=== PATIENT | male | born 1995 | race Caucasian/White ===

== ENCOUNTER → 2018-02-06 14:04 | Outpatient (CLI) | payer OTHER, SELFPAY | PROVIDERS: Family Provider Family Medicine; PCP Family Medicine; Visit Provider Family Medicine | DX: R30.0 Dysuria (principal) | CPT/HCPCS: 87086 ==

== ENCOUNTER 2020-04-21 11:24 | Day surgery (SDC) | payer OTHER, SELFPAY ==
[2020-04-08 13:46] VITALS: BMI 23.6
--- NOTE | 2020-04-09 02:36 | HP_ITS ---
Intake Vital Signs 04/08/20 Height 5 ft 8 in 04/08/20 Weight: 155 lb 3 oz 04/08/20 BMI 23.6 04/08/20 BP 119/68 04/08/20 Blood Pressure Location Rt brachial 04/08/20 Position Sitting 04/08/20 Respiration 16 04/08/20 Pulse 67 04/08/20 Pulse Oximetry (%) 97 Intake Visit Reasons: Hemorrhoid Chief Complaint: painful hemorrhoid Saxophone Player Required: No Is patient in pain?: Yes (rectum) Pain scale (1-10): 4 Allergies ondansetron [From Zofran] Adverse Reaction (Mild, Verified 04/08/20 13:47) lightheaded, nausea Medications escitalopram oxalate 10 mg tablet ea PO 04/08/20 [History Confirmed 04/08/20] PFS Medical History (Updated 04/08/20 @ 13:44 by Gisela Fry) Anxiety (Acute) GERD (gastroesophageal reflux disease) (Acute) Hemorrhoid (Acute) Surgical History (Updated 04/08/20 @ 13:44 by Gisela Fry) History of arthroscopic knee surgery (Acute) History of colonoscopy (Acute) Family History (Updated 04/08/20 @ 13:45 by Gisela Fry) Mother Hypertension Grandfather Heart disease Hypertension Melanoma Social History (Updated 04/09/20 @ 14:[address] Patrick Ngo MD) Smoking Status: Never smoker HPI HPI HPI: MIRANDA KEARNS, is a 25 M who presents to the office today for HPI HPI Surgical H&P: Yes HPI: MIRANDA KEARNS, is a 25 M who presents to the office today for Rectal pain. Patient notes that he has been having rectal pain more on his right side for the past 6 months. He reports that he does have some pain with defecation. He is not having any fevers or chills. He has not noticed any pus or purulence. He has not had any blood in his stool. ROS General General: No weight change, appetite, fatigue, colon cancer, breast cancer or weakness HEENT HEENT: No difficulty swallowing, eye injury, eye surgery, swollen glands or hoarseness Endo Endocrine: No thyroid disease, diabetes mellitus, thyroid cancer, Hair loss, heat intolerance or cold intolerance Musc Musculoskeletal: No back problems, arthritis, rheumatoid arthritis, gout or joint pain Cardio Cardiovascular: No murmur, pacemaker, heart disease, atrial fibrillation, high blood pressure, heart attack, heart stent, palpitations, shortness of breat with exertion or chest pain Psych Psychiatric: Yes anxiety; no depression or hearing voices Resp Respiratory: No shortness of breath, No sleep apnea, No cough, No COPD, No asthma, No emphysema, No wheezing Gastro Gastrointestinal: No abdominal pain, No nausea or vomiting, No diarrhea, No constipation, No blood in stool, Yes acid reflux, Yes hemorrhoids, No ulcers, No gallbladder problem, No black,tarry stools Ganesh Hematologic: No blood thinners, No blood disorders, No bleeding, No anemia, No blood clots Neuro Neurologic: No weakness Exam Const General: cooperative Orientation: alert, oriented x3 Resp Effort & Inspection: normal respiratory effort Auscultation: clear to auscultation bilaterally Cardio Rate: regular rate Rhythm: regular rhythm Heart Sounds: no murmurs GI Inspection: non-distended Palpation: soft, nontender Rectal Exam: visual inspection normal, normal sphincter tone, tenderness Assessment & Plan Problems 1. Rectal pain K62.89 Plan The patient is having pain in the rectal area especially on the right side. Patient reports he has pain with defecation but no blood in his stool or purulent material. On physical exam I do not note that there is any external hemorrhoid. On rectal exam he was very painful but there were no internal hemorrhoids noted either. I explained to the patient that he may have a fissure or fistula or possible hemorrhoid that is internal. I discussed exam under anesthesia with all the possible outcomes. I discussed performing an exam under anesthesia with possible hemorrhoidectomy if present. I also explained possible fistulotomy with seton suture placement or fissure excision. The patient understands and would like to proceed with exam under anesthesia. I discussed the risks of the procedure including not limited to bleeding, infection, urinary retention or fecal incontinence. We discussed the current risks associated with COVID-19. While it is understood that there is a community spread of COVID-19, the risk of flora COVID-19 while at [facility] ([facility]) is very low; however, the risk cannot be completely mitigated because of the community spread of the disease. We discussed in detail the risk of exposure to and/or potential harm posed by the COVID-19 virus with having a surgery/procedure at this time versus the risk of delaying the surgery/procedure. It is not possible to know either the risk of delaying the surgery or procedure or chance of getting an infection with perfect accuracy, but a joint decision was made to proceed at this time with the scheduled surgery/procedure as indicated on the consent form. Patient was notified that we will need to comply with any screening or testing [facility] wishes to perform or that surgery may be delayed for any positive results. Patrick Ngo MD Pager: [facility] [address] [place] [address], [address] [place] [address] Office: Coding Level of Care Code Off vis,new,level 3 Diagnoses Rectal pain K62.89 04/09/20 1436 <Electronically signed by Patrick vick MD> Date _ Patrick Ngo MD I have re-examined the patient. There are no clinical changes since date of exam.
[2020-04-21] VITALS (8 sets, daily range): BP systolic 111–127; BP diastolic 60–75; PULSE 75–104; RESP 14–16; TEMP 36.1–37.2; O2SAT 93–100; BMI 23.3
--- NOTE | 2020-04-21 | HEM_PTH ---
PATIENT: MIRANDA KEARNS LOC: [facility] [place] U#:[id number] AGE/SX: 25/M ROOM: RE04/21/[address]: Dr. Patrick Ngo MD : 1995 BED: DIS: 04/21/2020 SPEC #: [id number] RECD: 04/21/20 14:48 STATUS: WILLI REJaqueline #: [id number] SREE: 04/21/20 00:[address]: Patrick Ngo DEPT: SURGICAL PATHOLOGY RECD BY: Leonardo Okeefe ENTERED: 04/22/20 12:03 SP TYPE: HEMORRHOID OTHR DR: Dr. Cresencio Colbert MD Tissues: HEMORRHOIDS Procedures: Surgery Specimen Level III HEADER OPERATION: EUA, hemorrhoidectomy PRE-OP DIAGNOSIS: Hemorrhoid TISSUE SUBMITTED: Hemorrhoid right column MICROSCOPIC DIAGNOSIS Hemorrhoid right column: A piece of squamous mucosa with dilated and congested blood vessels, consistent with hemorrhoid. SJ:quentin 04/23/20 MICROSCOPIC DESCRIPTION Slides are reviewed. GROSS DESCRIPTION Received in fixative is one container labeled with the patient's name and designated hemorrhoid right column. The specimen consists of a piece of congested mucosal tissue measuring 1.5 x 0.7 x 0.7 cm. The specimen is bisected and submitted entirely in one cassette. / ZHENG:quentin 04/22/20 TC:5 CPT: 04985
[2020-04-21] MEDS: Lactated Ringers 1,000 ML 100 ML IV ×2 (12:01→15:20)
[2020-04-21] MEDS: Lubricating Jelly 60 GM Tube 30 GM TOPICAL (14:29)
[2020-04-21] MEDS: Dibucaine 30 GM Tube 1 APPLIC (14:35)
[2020-04-21] MEDS: Bupivacaine Mpf 0.5% 30 ML VIAL (14:35)
--- NOTE | 2020-04-21 15:11 | PCM.OPRPT ---
Problem List (1) Complex second degree hemorrhoid Status: Acute Report of Operation Date of Procedure: 04/21/20 Pre-Operative Diagnosis: Anal pain and hemorrhoids Post-Operative Diagnosis: Same Surgery/Procedure Performed:: Exam under anesthesia and hemorrhoidectomy Description of Surgical Findings:: Hemorrhoid of the right column Specimen's removed: Hemorrhoid Description of Procedure: The patient was brought back to the operating room and general anesthesia was induced. The patient was placed in a prone jackknife position. The buttocks were taped in an open position. The perineal area was prepped and draped in usual sterile fashion. A well lubricated finger was placed into the rectum and it was examined. The patient appeared to have an internal and external right hemorrhoid. There was no evidence of fistula or fissure. Retractor was placed into the anus. A chromic suture was used to suture the internal component of the hemorrhoid. Next using harmonic the hemorrhoid was removed. The suture was then used to reapproximate the mucosa. Next to the area was injected with local anesthetic. Dibucaine cream was then placed into the anal canal. Patient was then rolled and extubated and taken to PACU in stable condition. Patient tolerated the procedure well. - Admit VTE Documentation VTE Mechan Device Prophylaxis: SCD's
--- NOTE | 2020-04-21 15:18 | DCINST_ITS ---
Discharge Diet: No Restrictions Discharge Activity: Return to Normal Activity, May Not Drive - while you are taking narcotic pain medications. Do not drive, work with heavy equipment or sign legal documents for 24 hours after your surgery. Additional Activity Instructions:: Be aware that pain medications may cause nausea. You should typically eat light foods as you take your pain medications. Pain medications may also cause constipation, if you have difficulty with this please discuss with your doctor. Call your doctor if your incision/area has: Continuous Slow Oozing, Sudden Increased Bleeding, Increased Pain/ Swelling, Increased Redness, Foul Smelling Discharge, Swelling at the incision site Call your doctor if you observe: Fever of 101 or Higher Additional Dressing/Incision Instructions:: Place dibucaine ointment on the perianal area as needed. Sitz baths twice daily and after bowel movements. Allergies/Adverse Reactions: Allergies ondansetron [From Zofran] Adverse Reaction (Mild, Verified 04/21/20 11:44) lightheaded, nausea Medications to take at Discharge escitalopram oxalate 10 mg tablet 10 mg PO DAILY 04/08/20 Omeprazole [Prilosec] 20 mg PO DAILY PRN 04/14/20 Docusate Sodium [Colace] 100 mg PO BID #20 cap 04/21/20 Oxycodone HCl/Acetaminophen [Percocet 5-325 mg Tablet] 1 - 2 tab PO Q6H PRN 5 Days #50 tablet 04/21/20 The following prescriptions were given: Docusate Sodium [Colace] 100 mg PO BID #20 cap Transmission Status: Pending to [facility] Oxycodone HCl/Acetaminophen [Percocet 5-325 mg Tablet] 1 - 2 tab PO Q6H PRN 5 Days #50 tablet PRN Reason: Pain Score 4-10/10 Transmission Status: Sent to [facility] Primary Care Physician: Kade Colbert MD [Primary Care Provider] - Test Results: Test results from this visit will be discussed in further detail at your follow- up appointment, if applicable. Please Follow Up With: Patrick Ngo MD When: Please call to schedule 2 week follow up appointment. [phone]
== END 2020-04-21 17:17 | disposition home or self-care (01) ==
LOC: SDC 11:25 → AC 11:26
PROVIDERS: PCP Family Medicine; Referring Provider Surgery; Visit Provider Surgery
PROC: (CPT 46260; principal; 2020-04-21 12:45)
DX: K64.1 Second degree hemorrhoids (principal); F41.9 Anxiety disorder, unspecified; K21.9 Gastro-esophageal reflux disease without esophagitis; Z79.899 Other long term (current) drug therapy
CPT/HCPCS: 46260; 87635; 88304; G2023; J7120; U0003

== ENCOUNTER 2021-11-07 10:48 | Outpatient (CLI) | payer OTHER, SELFPAY | END 2021-11-07 23:59 | disposition home or self-care (01) | LOC: LABSPEC 11-08 10:53 | PROVIDERS: PCP Family Medicine; Referring Provider Family Medicine; Visit Provider Family Medicine | DX: U07.1 COVID-19 (principal) | CPT/HCPCS: 87635; U0003; U0005 ==

== ENCOUNTER → 2022-09-20 | Outpatient (CLI) | payer OTHER, SELFPAY ==
--- NOTE | 2022-09-20 15:25 | RAD_ITS ---
STUDY: X-RAY - PARANASAL SINUSES REASON FOR EXAM: Male, 27 years old. Allergies. TECHNIQUE: 4 view(s) of the paranasal sinuses were obtained. COMPARISON: None. FINDINGS: Normal visualized frontal, maxillary, ethmoidal and sphenoid sinuses. Normal visualized facial bones. The soft tissue structures are unremarkable. RAD/Sinuses min 3 Views IMPRESSION: Normal x-rays of the paranasal sinuses. Electronically Signed: Rene Laird, at 15:45 EST ,
== END | disposition home or self-care (01) ==
LOC: MTRAD 15:16
PROVIDERS: PCP Family Medicine; Visit Provider Family Medicine
DX: T78.40XA Allergy, unspecified, initial encounter (principal)
CPT/HCPCS: 70220

== ENCOUNTER → 2023-04-25 | Outpatient (CLI) | payer OTHER, SELFPAY ==
[2023-04-25 10:50] LABS: Vitamin B12 478 pg/mL (211-911); Vitamin D,25 Hydroxy 30.6 ng/mL
[2023-04-25 11:06] LABS: ALB/GLOB Ratio 1.1 RATIO (0.9-2.4); AST(SGOT) 23 U/L (15-37); Alanine Aminotransfer ALT/SGPT 60 U/L (16-61); Albumin, Serum 4.3 g/dL (3.2-5.0); Alkaline Phosphatase 46 U/L (45-117); Anion Gap 3 (5-15); BUN 14 mg/dL (7-18); BUN/Creat Ratio 16.5 RATIO (10-20); CRP < 2.90 mg/L (0.0-3.0); Calcium,Total 9.5 mg/dL (8.5-10.1); Chloride 106 mmol/L (98-107); Creatinine, Serum 0.85 mg/dL (0.70-1.30); EST Glomerular Filtration Rate 115 mL/min (>60); Est Glom Filt Rate - Afr Amer 139 mL/min (>60); Glucose 102 mg/dL (74-106); Iron 111 ug/dL (65-175); Potassium 3.8 mmol/L (3.5-5.1); Protein, Total 8.3 g/dL (6.4-8.2); Sodium Level 140 mmol/L (136-145); Thyroid Stim Hormone (TSH) 1.59 uIU/mL (0.358-3.74)
[2023-04-25 12:25] LABS: Absolute Lymphocyte Count 1.13 X10^3/uL (0.83-4.51); Basophil# 0.03 X10^3/uL; Basophil% 0.8 % (0-1); Eosinophil# 0.16 X10^3/uL; Eosinophils% 4.5 % (0-5); Hemoglobin 15.1 g/dL (13.0-16.5); Lymphocyte # 1.13 X10^3/ul (0.83-4.51); Lymphocyte % 31.7 % (19-41); Mean Corp Hgb Conc 35.1 g/dL (32-36); Mean Corpuscular Hgb 32.4 pg (27.0-32.0); Mean Corpuscular Volume 92.3 fL (80-94); Mean Platelet Vol. 9.8 fl (6.2-12.0); Monocyte% 8.4 % (0-10); NRBC Flagged by Analyzer 0 % (0-5); Neutrophil # 1.95 X10^3/uL (2.7-7.7); Neutrophil % 54.6 % (47-70); Platelet Count 189 K/mm3 (150-450); RBC Distribution Width CV 11.5 % (11.6-14.6); RBC Distribution Width SD 39.1 fl (35.1-43.9); Red Blood Count 4.66 M/mm3 (4.6-6.2); White Blood Count 3.6 K/mm3 (4.4-11.0)
[2023-04-25 12:34] LABS: Erythrocyte Sedimentation Rate < 1 mm/hr (0-20)
== END | disposition home or self-care (01) ==
PROVIDERS: PCP Family Medicine; Referring Provider Family Medicine; Visit Provider Family Medicine
DX: R53.83 Other fatigue (principal); R25.2 Cramp and spasm
CPT/HCPCS: 36415; 80053; 82306; 82533; 82607; 83540; 84403; 84443; 85025; 85652; 86140

== ENCOUNTER → 2023-07-18 | Outpatient (CLI) | payer BC, SELFPAY ==
--- NOTE | 2023-07-18 09:23 | US_ITS ---
STUDY: THYROID ULTRASOUND REASON FOR EXAM: Male, 28 years old. Palpable nodule TECHNIQUE: Ultrasound evaluation of the thyroid was performed with real-time and static jay-scale imaging. COMPARISON: None. FINDINGS: RIGHT LOBE: The right lobe of the thyroid gland measures 5.4 x 1.8 x 1.7 cm. There is a heterogeneous echotexture. There are no demonstrated solid, cystic or complex lesions. LEFT LOBE: The left lobe of the thyroid gland measures 5.9 x 2.6 x 2.4 cm. There is a heterogeneous echotexture. There is a solid heterogeneous partially calcified nodule measuring 2.7 x 2.5 x 2.2 cm in the central left lobe. This nodule is mixed cystic and solid, hypoechoic, [id number], is lobulated or irregular and contains no echogenic foci. TI-RADS points: 5. TI-RADS category: TR4. This nodule is moderately suspicious. Recommend FNA evaluation. ISTHMUS: The isthmus measures 0.4 cm. The regional lymph nodes are normal. US/Thyroid IMPRESSION: Enlarged heterogeneous thyroid gland with concerning nodule in the left thyroid lobe. Categorization and follow-up as described above. Electronically Signed: Enrique Miranda MD at 15:23 EDT ,
--- NOTE | 2023-07-18 09:30 | RAD_ITS ---
STUDY: X-RAY - ESOPHAGUS (BARIUM SWALLOW) WITH FLUOROSCOPY REASON FOR EXAM: Male, 28 years old. GASTRO ESOPHAGEAL REFLUX TECHNIQUE: 22 view(s) of the esophagus were obtained following swallowing of barium. FLUOROSCOPY TIME (if supplied): (32 seconds) minutes/seconds COMPARISON: None. FINDINGS: There is no demonstrated esophageal foreign body. There is no demonstrated stricture or mucosal abnormality. Normal gastroesophageal junction, without a demonstrated hiatal hernia. The patient ingested a 12 mm tablet of barium without any difficulty. Normal visualized aortic arch and descending thoracic aorta. Normal visualized pulmonary parenchyma. Normal visualized osseous structures of the thorax. RAD/Esophagus Dual Contrast IMPRESSION: Normal plain film x-ray examination (barium swallow) of the esophagus. Electronically Signed: Ryan Moulton MD at 12:59 EDT ,
== END | disposition home or self-care (01) ==
LOC: US 09:19
PROVIDERS: PCP Family Medicine; Referring Provider Family Medicine; Visit Provider Family Medicine
DX: E04.1 Nontoxic single thyroid nodule (principal)
CPT/HCPCS: 74221; 76536

== ENCOUNTER → 2023-08-09 | Outpatient (CLI) | payer BC, SELFPAY ==
--- NOTE | 2023-08-09 15:00 | FLU_PTH ---
PATIENT: MIRANDA KEARNS LOC: [facility] U#:[id number] AGE/SX: 28/M ROOM: RE08/09/[address]: Dr. Claixto Crump MD : 1995 BED: DIS: 08/09/2023 SPEC #: [id number] RECD: 08/09/23 15:59 STATUS: WILLI REQ #: [id number] SREE: 08/09/23 15:[address]: Calixto Crump DEPT: CYTOLOGY RECD BY: Felicity Alvarez ENTERED: 08/10/23 09:23 SP TYPE: Fluid OTHR DR: Dr. Cresencio Colbert MD Tissues: A - Thyroid gland, NOS B - Thyroid gland, NOS Procedures: Special Stain Group II Surgery Specimen Level IV Cytospin Fluid Cytology Other HEADER OPERATION: Fine needle aspiration left thyroid nodule PRE-OP DIAGNOSIS: Left thyroid nodule TISSUE SUBMITTED: A - Left thyroid nodule fluid, B - Left thyroid nodule x4 slides DIAGNOSIS CYTOLOGY A. Fine needle aspiration, left thyroid nodule (cytospin and cell block): Atypical follicular cells present, Scott Category III. See comment. B. Fine needle aspiration, left thyroid nodule (smears). Papillary thyroid carcinoma, Scott Category . See comment. AM:quentin 08/13/2023 COMMENT A & B. The Scott System for thyroid diagnostic categorization was used in the evaluation of this case. Adequate for evaluation. CYTOLOGY STUDY Slides are reviewed. CYTOLOGY GROSS A - Received is 30 ml of red cloudy fluid labeled with the patient's name and and designated per the requisition as left thyroid nodule. Submitted for cytology preparation including cell block. B - Received are four smears labeled with the patient's name and designated per the requisition as left thyroid nodule. Submitted for staining. / quentin 08/10/2023 TC:0 CPT: 91816 x2, 36696
== END | disposition home or self-care (01) ==
LOC: LABSPEC 16:04
PROVIDERS: PCP Family Medicine; Referring Provider Surgery; Visit Provider Surgery
DX: C73 Malignant neoplasm of thyroid gland (principal)
CPT/HCPCS: 88108; 88161; 88305; 88313

== ENCOUNTER → 2023-08-14 | Outpatient (CLI) | payer BC, SELFPAY ==
--- NOTE | 2023-08-14 18:24 | US_ITS ---
EXAM: Soft tissue neck ultrasound HISTORY: check lymph nodes/surrounding tissue of thyroid COMPARISON: None TECHNIQUE: Sonographic evaluation of both sides of the neck to evaluate for palpable lumps FINDINGS: Sonographic evaluation of the soft tissues of the anterior neck show multiple physiologic jugular chain lymph nodes. All measure well less than 1 cm in short axis dimension. No suspicious mass or adenopathy noted in the right side of the neck. There are multiple left-sided subcentimeter in short axis dimension physiologic lymph nodes lateral to the thyroid with the largest measuring 1.4 x 0.7 x 0.4 cm. US/Head/Neck Soft Tissue IMPRESSION: Physiologic lymph nodes in the left jugular chain. No suspicious bulky adenopathy or suspicious mass lesion. Electronically Signed: Enrique Miranda MD at 8:49 EST ,
== END | disposition home or self-care (01) ==
LOC: US 18:24
PROVIDERS: PCP Family Medicine; Visit Provider Surgery
DX: C73 Malignant neoplasm of thyroid gland (principal)
CPT/HCPCS: 76536

== ENCOUNTER 2023-09-13 06:06 | Day surgery (SDC) | payer BC, SELFPAY ==
[2023-09-13] VITALS (18 sets, daily range): BP systolic 97–121; BP diastolic 66–85; PULSE 70–111; RESP 14–18; TEMP 36.2–36.9; O2SAT 88–100; BMI 25.5
--- NOTE | 2023-09-13 | THYROID_PTH ---
PATIENT: MIRANDA KEARNS LOC: [facility] [place] U#:[id number] AGE/SX: 28/M ROOM: RE09/13/[address]: Dr. Calixto Crump MD : 1995 BED: DIS: 09/13/2023 SPEC #: [id number] RECD: 09/13/23 09:16 STATUS: WILLI PAUL #: [id number] SREE: 09/13/23 00:[address]: Calixto Crump DEPT: SURGICAL PATHOLOGY RECD BY: Sushila Rubalcava ENTERED: 09/13/23 10:00 SP TYPE: THYROID OTHR DR: Dr. Cresencio Colbert MD Tissues: A - Adipose tissue B - Thyroid gland, NOS Procedures: Frozen Section (charge) Surgery Specimen Level IV Surgery Specimen Level V HEADER OPERATION: Left thyroidectomy with isthmusectomy & IONM PRE-OP DIAGNOSIS: Thyroid nodule, thyroid papillary carcinoma TISSUE SUBMITTED: A - Rule out parathyroid tissue, frozen section, B- Left thyroid and isthmus, tag on left superior pole FROZEN SECTION DIAGNOSIS A. Rule out parathyroid tissue, biopsy: A piece of fibroadipose tissue. Not parathyroid, thyroid or lymph node tissue. :quentin 09/13/2023 MICROSCOPIC DIAGNOSIS A. Rule out parathyroid tissue, biopsy: A piece of fibroadipose tissue. No parathyroid, thyroid or lymph node tissue is noted. See comment. B. Left thyroid and isthmus, thyroidectomy and isthmusectomy: Papillary thyroid carcinoma. See cancer summary in the comment section. SJ:quentin 09/18/2023 COMMENT A. The entire specimen is exhausted during frozen section processing. B. THYROID CANCER SUMMARY Procedure: Left lobectomy and isthmusectomy (hemithyroidectomy) Tumor Focality: Unifocal Tumor Site: Left thyroid lobe Tumor size: 3.8 x 2.5 x 1.6 cm. Histologic Type: Papillary carcinoma, classic (usual, conventional) Margins: Margins uninvolved by invasive carcinoma. The tumor is <0.1 cm away from the closest anterior and posterior margin. Angioinvasion: Not identified Lymphatic Invasion: Not identified Perineural invasion: Not identified Extrathyroidal Extension: Not identified Regional Lymph Nodes: Number of lymph nodes Examined: 1 Number of Lymph nodes involved: 0 Distant metastasis: No applicable Ancillary Studies: Not performed Additional Pathologic Findings: None identified Clinical History: Please make reference to previous specimen ([id number]), fine needle aspiration, left thyroid nodule with diagnosis of papillary thyroid carcinoma. PATHOLOGIC STAGE: pT2 pN0 pMx The above summary is in compliance with [employer] (CAP) Cancer Protocols Checklist and [place] Joint Committee on Cancer (AJCC), Staging Manual, 8th Ed. MICROSCOPIC DESCRIPTION Slides are reviewed. GROSS DESCRIPTION A - Received fresh for frozen section diagnosis labeled with the patient's name is a specimen designated rule out parathyroid tissue. The specimen consists of a piece of zamora soft tissue measuring 0.3 x 0.2 x 0.1 cm and weighing 0.004 gm (4 mg). The entire specimen is submitted for frozen section diagnosis in one cassette. / SJ:rg 09/13/2023 B - Received in fixative is one container labeled with the patient's name and designated left thyroid and isthmus. The specimen consists of a thyroid lobectomy and isthmusectomy specimen weighing 16.2 gm. The left thyroid lobe measures 4.6 x 3.0 x 2.0 cm and isthmus measures 1.7 x 0.6 x 0.5 cm. The specimen is inked as follows: posterior surface thyroid lobe and isthmus - black, anterior surface left thyroid lobe and isthmus - blue and ischemic resection margin - yellow. Serial sections of the thyroid lobe reveal a zamora-pink nodule measuring 3.8 x 2.5 x 1.6 cm. This nodule is present in the middle and lower portion of the thyroid lobe. Sections of the isthmus reveal unremarkable cut surfaces. The specimen is submitted in 13 cassettes as follows: 1 - isthmus, 2 - isthmus and most superior portion of the left thyroid lobe, 3-13 - rest of the left thyroid lobe (13 - most inferior portion of thyroid lobe). / ZHENG:quentin 09/14/2023 TC:0 CPT: 58040, 89185, 21202
[2023-09-13] MEDS: Lactated Ringers 1,000 ML 15 ML IV (06:36)
--- NOTE | 2023-09-13 07:33 | HP.PCM_ITS ---
History and Physical Date of Admission: 09/13/23 OFFICE VISIT Date of Service: 08/09/23 MR#: [id number] Acct: [id number] Name: MIRANDA VARGAS Rep #: [id number] : 1995 Provider: Dr. Calixto Crump MD Age/Sex: 28/M Location: [facility] Status: Signed Intake Vital Signs 08/09/2314:40 BP 120/76 Blood Pressure Location Rt brachial Position Sitting Respiration 17 Pulse 87 Pulse Source Monitor Temp 97.7 F L Temp Source Temporal Pulse Oximetry (%) 100 Oxygen Delivery Method room air Intake Visit Reasons: THYROID NODULE Chief Complaint: thyriod nodule Is patient in pain?: No Allergies ondansetron [From Zofran] Adverse Reaction (Mild, Verified 08/09/23 14:41) lightheaded, nausea Medications escitalopram oxalate 10 mg tablet 10 mg PO DAILY 04/08/20 [History Confirmed 08/09/23] omeprazole 20 mg capsule,delayed release 20 mg PO DAILY PRN Indigestion 04/14/20 [History Confirmed 08/09/23] docusate sodium 100 mg capsule 100 mg PO BID #20 caps 04/21/20 [Rx Confirmed 08/09/23] cetirizine 10 mg capsule (Zyrtec) 10 mg PO DAILY PRN 08/09/23 [History Confirmed 08/09/23] cholecalciferol (vitamin D3) 50 mcg (2,000 unit) capsule 50 mcg PO DAILY 08/09/23 [History Confirmed 08/09/23] [facility] Medical History (Updated 08/09/23 @ 16:[address] Calixto Crump MD) Anxiety GERD (gastroesophageal reflux disease) Hemorrhoid Surgical History History of arthroscopic knee surgery History of colonoscopy Family History Mother HypertensionGrandfather Heart disease Hypertension Melanoma Social History Smoking Status: Never smoker HPI HPI HPI: Patient is a 28-year-old male who presents for newly diagnosed thyroid nodule. They are referred for surgical consultation from Dr. Colbert. This was discovered during a work-up for some chest tightness and hoarseness which patient complained of approximately 2 months ago and he was noted to have thyroid nodularity as well as thyromegaly on exam. He was prescribed omeprazole on the offhand chance that he was dealing with some laryngeal irritation from gastric acid and notes that the proton pump inhibitor did help with his symptoms. In fact, he suggest that the symptoms got better to the point that he did not notice them until he had some recent travel and since that travel things have become worse again. He also notes that his postnasal drip and allergies are contributors with the symptoms. They do not experience difficulty with swallowing since starting the omeprazole. They do not complain of a new cough. They do appreciate new voice changes as above. They do not have a history of snoring/sleep apnea. Additionally, their weight has been stable and they do not have a history of weight gain/loss. There is no history of recent fatigue. They do not have a history of heat or cold intolerance. Other symptoms include: Pertinent negatives of no palpitations, no sweating, no unusual swelling, and no concentration difficulty. They do not have a family history of thyroid disorders or endocrinopathies. There is no history of prior radiation exposure. Previous work-up as included thyroid ultrasound. This study was performed on 07/18/2023 and showed a right thyroid lobe measuring 5.4 x 1.8 x 1.7 cm. Within this lobe radiology identified no demonstrated solid, cystic, or complex lesions. The left thyroid lobe measured 5.9 x 2.6 x 2.4 cm. Within this lobe radiology identified a nodule measuring 2.7 x 2.5 x 2.2 cm with a solid composition and hypoechoic echogenicity appearance. An FNA has not been performed. Other tests include: TSH: 1.59 (04/25/2023) ROS General General: No weight change, appetite, fatigue, colon cancer, breast cancer or weakness HEENT HEENT: No difficulty swallowing, eye injury, eye surgery, swollen glands or hoarseness Endo Endocrine: No thyroid disease, diabetes mellitus, thyroid cancer, Hair loss, heat intolerance or cold intolerance Skin Skin: No rash or changing moles Musc Musculoskeletal: No back problems, arthritis, rheumatoid arthritis, gout or joint pain Cardio Cardiovascular: No murmur, pacemaker, heart disease, atrial fibrillation, high blood pressure, heart attack, heart stent, palpitations, shortness of breat with exertion or chest pain Psych Psychiatric: Yes anxiety; No depression or hearing voices Resp Respiratory: No shortness of breath, No sleep apnea, No cough, No COPD, No asthma, No emphysema and No wheezing Gastro Gastrointestinal: No abdominal pain, No nausea or vomiting, No diarrhea, Yes constipation, No blood in stool, No acid reflux, Yes hemorrhoids, No ulcers, No gallbladder problem and No black,tarry stools Ganesh Hematologic: No blood thinners, No blood disorders, No bleeding, No anemia and No blood clots Neuro Neurologic: No system reviewed and no additional complaints, except as documented, No as per HPI, No abnormal gait, No abnormal hearing, No abnormal movements, No abnormal speech, No behavioral changes, No burning sensations, No confusion, No convulsions, No disequilibrium, No dizziness, No localized weakness, No frequent falls, No headache(s), No lack of coordination, No loss of vision, No memory loss, No numbness, No other visual disturbances, No radicular pain, No restless legs, No sensory deficit, No syncope, No tingling, No tremor(s), No weakness and No other Exam Const General: cooperative, no acute distress and anxious Orientation: alert, awake and oriented x3 Neck Lymphatic: no lymphadenopathy noted Other: Patient with thyromegaly and asymmetric gland with left significantly greater than right. Patient describes no tenderness with palpation. No cervical lymphadenopathy appreciated. Ultrasound exam was made of patient's neck and identified is suspicious left thyroid nodule that demonstrated a solid composition, hypoechoic echotexture, and evidence of several punctate calcifications. Office Procedures Fine Needle Aspiration Provider Documentation Details: Indication: Left thyroid nodule After obtaining patient consent and conducting a timeout amongst those present, the procedure was commenced by locating the suspicious nodule in the inferior pole of the left thyroid lobe using ultrasound. Superficially, the skin was cleaned with an alcohol swab and a wheal of local anesthetic was created after instilling 4 ml 1% lidocaine. Then, under ultrasound guidance, multiple passes were made into the thyroid nodule using a 25-gauge needle. Once an adequate specimen was detected within the hub of the needle and bottom of the syringe, this was handed off the field. A second pass was made in a similar manner using a 22-gauge needle. This specimen, also, was passed off the field for cytopathologic evaluation. External pressure was applied to the neck to assist with hemostasis. A quick examination was made with ultrasound to exclude any evidence of hematoma formation. Then the surface of the neck was cleaned, dried, and a bandage was applied. Patient was gradually returned to the sitting position and after short period of monitoring was dismissed. Wound care instructions and expectations regarding pathologic processing were discussed prior to dismissal. Complications: None Estimated blood loss: 1 ml Alert Index Editor Alert Billing: Yes FNA [id number] Thyroid Procedure Time Out Time Out Informed consent given: Yes Consent signed: Yes Time out checklist: patient, procedure, site marked/identified, positioning of patient, supplies available, allergies confirmed and team agrees on procedure Time out staff in room: Yes Time out verified: Yes Time out date: 08/09/23 Time out time: 15:00 Assessment and Plan Assessment and Plan (1) Thyroid nodule: Status: Acute Comment: This is a 28-year-old male, euthyroid from an endocrine standpoint, who presents for a newly diagnosed left thyroid nodule that arose out of a work-up for complaints of chest tightness and hoarseness. It is difficult to attribute his hoarseness directly to his thyroid nodule as he reports some improvement simply with taking omeprazole empirically. Thyroid ultrasound obtained 07/18/2023 was read by radiology as consistent with a TI-RADS 4 nodule, however, in the body of the impression they did note that the nodule was partially calcified but do not appear to account for this finding in their final TI-RADS rating. I have shared with Mr. Vargas that I would make less of his irregular contour and reintroduced the calcification observation?thereby raising his TI-RADS rating to a 5 (7 total points given 3 4 presence of punctate echogenic foci). I also shared with him the notes mildly concerned for possible evidence of extrathyroidal extension based on his ultrasound that was done forma fatmata at the hospital, but in my own exam did not find evidence of this feature. At either TI-RADS rating given the dimension of his thyroid nodule exceeded 1.5 cm the ACR recommendation would be to proceed with biopsy and this recommendation was extended the patient. He was receptive of this recommendation and the biopsy procedure was undertaken in uncomplicated fashion during his consultation visit. See appended documentation for details. He has a number of questions related to the possibility of this representing cancer and I tried to remain at a surface level with my comments, but did inform him that surgery would be recommended. Plan: ? Patient asked to keep his head elevated and remove bandage on returning home ? We will notify patient on cytopathology results once official I have examined the patient and the H&P has been reviewed. There are no clinical changes since date of exam. Procedure and post procedure expectations were reviewed with the patient and his . I did discuss with him specifically that there may be an indication to take some of his strap muscle and lorne of the left thyroid lobe if there appears to be gross evidence of extrathyroidal extension. He shares that he is simply ready to have it all gone and accepts this information. We are planning for outpatient disposition following surgery today. Will now proceed to the operating room for left thyroid lobectomy with isthmusectomy using intraoperative nerve monitoring, indication:papillary thyroid cancer.
[2023-09-13] MEDS: Bupivacaine 0.25% 30 ML Vial (10:56)
--- NOTE | 2023-09-13 11:05 | OP.PCM_ITS ---
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 High left superior pole ? Dominant left mid to inferior thyroid nodule that easily from the overlying sternothyroid muscle ? Grossly intact left inferior parathyroid gland ? Visually and audibly intact (by Nims monitoring) left recurrent laryngeal nerve Surgeon: Calixto Crump electric motor repair supervisor: Ric Metz Type of Anesthesia: General/Supplemental Anesthesiologist: Wero Ashton Specimen's removed: Left thyroid lobe Estimated Blood Loss (mL): 15 Description of Procedure: After appropriate identification in the preoperative holding area, the patient was brought to the operating room where he was positioned supine on the operating room table. Induction of general endotracheal anesthetic was begun and a NIMS tube was placed under glidescope view to confirm coaptation with the vocal cords anteriorly. Tube was then secured and the patient was positioned with a shoulder roll so that his head was in extension but supported. The Nims electrodes were placed and connected to the monitor. We had appropriate resistance showing on the monitor and tapping at the level of the cricoid produce a graphical representation of the impulse on the monitor. Patient's neck was then prepped and draped in usual sterile fashion and a formal timeout was conducted from those present. The lowest skin fold to the sternal notch and overlying the area of the cricoid cartilage, deeply, was selected for incision site (this resided approximately 3 fingerbreadths cephalad to the notch). An incision was extended for 2 cm on either side of midline. Electrocautery was used to deepen this incision through the level of the platysma. Subplatysmal flaps were raised with the use of electrocautery and blunt dissection. The strap muscles were then divided along the medial raphe bringing us down to the level of the thyroid. Capsular attachments to the thyroid were divided with the use of LigaSure or bluntly swept away with a peanut sponge. Retractors were placed regarding excellent visualization of the left superior pole of the thyroid. The vessels of the superior pole were sequentially ligated with the use of the LigaSure device. As we moved towards the thyroid gland away from the pole vessels, we sought to identify the superior parathyroid gland and preserve its vascular pedicle. However, since this was a cancer case I wanted to iden tify it microscopically as well and a minute biopsy was made after first placing a titanium clip across a lobular structure suspected as the left superior parathyroid and was submitted for frozen section. We then moved inferiorly and divided those polar vessels with LigaSure. The inferior parathyroid gland was grossly visualized and preserved with this division. With the poles freed the thyroid was mobilized medially. I bluntly the remaining strap muscle fibers from the thyroid capsule and using blunt dissection parallel to the presumed course of the recurrent laryngeal nerve, exposed the tracheoesophageal groove. Here I encountered a positive signal for the left recurrent laryngeal nerve and was shortly thereafter able to visualize the nerve. The nerve positively identified, I relieved the attachments of the thyroid gland to the underlying trachea with the use of LigaSure. As we again approached the nerve insertion of the cricothyroid membrane, I elected to leave a minuscule amount of thyroid tissue intact after first securing it against bleeding using 4-0 silk ligatures. The area around the ligament of Sweeney was highly vascular and this process proved tedious. The recurrent laryngeal nerve signal was checked prior to the division of any thyroid tissue. In the cephalad portion of the incision, I encountered what appeared to be a pyramidal lobe and dissected this circumferentially and took this with the specimen. Once I had assured clearance from the nerve, the remaining thyroid tissue was removed from the anterior surface of the trachea with electrocautery to include the entirety of the thyroid isthmus. The specimen was divided with the LigaSure device for hemostasis and was marked through the superior pole with a silk suture before it was passed off the field for permanent section. Pressure was applied to the surgical cavity and there was some slight oozing along the anterior surface of the trachea well away from the recurrent laryngeal nerve where selective electrocautery was applied. Closer to the nerve there was some additional oozing and Surgicel hemostatic agent was placed while pressure was applied. Once this pressure was relieved, the surgical cavity was again inspected and we found hemostasis to be intact. We also confirmed the presence of both the inferior parathyroid gland as well as a well-functioning recurrent laryngeal nerve. Satisfied with this result, the strap muscles were closed with a running 3-0 Vicryl stitch leaving a small gap at the inferior aspect of the suture line. The platysmal flaps were closed with interrupted 3-0 Vicryl. Some additional local anesthetic was infiltrated throughout the dermis and the skin was closed in a subcuticular fashion using 4-0 Monocryl. Steri-Strips were applied. Telfa and Tegaderm were used as a dressing. The patient was then awakened from anesthetic without event and was taken to PACU for ongoing recovery. Grafts/Implants Used: None Complications None Admit VTE Documentation VTE Mechan Device Prophylaxis: SCD's Procedures Endocrine CF Procedures [id number]: [id number] Partial thyroid excision
[2023-09-13] MEDS: BENZOCAINE/MENTHOL 1 LOZENGE MUCOUS MEM (12:42)
--- NOTE | 2023-09-13 15:27 | DCINST_ITS ---
Discharge Instructions Diet Discharge Diet: Soft diet (Okay to advance to unrestricted once tolerating) Activity Discharge Activity: May Not Drive (While still difficult to turn head from side to side (impairing blindspot checking) OR if taking narcotic pain medications) May shower in (days): 2 Ice area for (Minutes): 20 Dressing / Incision Call your doctor if your incision/area has: Continuous Slow Oozing, Sudden Increased Bleeding, Increased Pain/ Swelling, Increased Redness and Swelling at the incision site Call your doctor if you observe: Fever of 101 or Higher, Numbness or Tingling (of fingertips or lips) and - (Difficulty swallowing) Remove Dressing in: 2 days (Remove outer dressing but leave steri strips in place until they fall off spontaneously) Cleanse incision/area with: Soap & Water (Avoid scrubbing/ submersing) Follow Up Care Please Follow Up With: Calixto Crump MD When: In 2 weeks for postop check Test Results: Test results from this visit will be discussed in further detail at your follow- up appointment, if applicable. Discharge Plan Admission Primary Reason for Your Visit: Thyroid lobectomy Attending Provider: Calixto Crump Primary Care Provider: Kade Colbert Instructions Additional Instructions / Restrictions: Please take a regular strength Tums if experiencing any numbness or tingling of the fingertips or about the mouth and notify Dr. Crump/general surgery office at earliest convenience Discharge Orders/Prescriptions Prescriptions: No Action escitalopram oxalate 10 mg tablet 10 mg PO DAILY Patient Comments: TAKE 1 TABLET BY MOUTH ONCE DAILY cholecalciferol (vitamin D3) 50 mcg (2,000 unit) capsule 50 mcg PO DAILY Zyrtec 10 mg capsule 10 mg PO DAILY PRN (Reason: allergy symptoms) omeprazole 20 MG capsule 40 mg PO DAILY PRN (Reason: Indigestion) Probiotic Acidophilus 250 million cell capsule 500 mmu cells PO DAILY docusate sodium 100 MG capsule 100 mg PO DAILY Referrals / Follow Up: Kade Colbert MD [Primary Care Provider] - Disposition Disposition (needs filled in before D/C Order can be placed): Home, Self Care
== END 2023-09-13 16:45 | disposition home or self-care (01) ==
LOC: SDC 06:11 → AC 06:12
PROVIDERS: PCP Family Medicine; Referring Provider Family Medicine; Visit Provider Surgery
PROC: (CPT 60210; principal; 2023-09-13 07:15)
DX: C73 Malignant neoplasm of thyroid gland (principal); E04.1 Nontoxic single thyroid nodule; Z79.899 Other long term (current) drug therapy
CPT/HCPCS: 60210; 00320; 88305; 88307; 88331; 94640; A4648; J7120

== ENCOUNTER → 2023-11-07 | Outpatient (CLI) | payer BC, SELFPAY ==
--- OUTSIDE RECORDS SUMMARY | 2023-11-07 12:42 | XMS RPT_ITS | CCD ---
Author Name Unknown Address [facility] [address] [place] [address] Organization [facility] Care Team Providers [employer] Registrar Name Role Phone INDIGO GRACIELA Unavailable Unavailable VENKATESH CASIANO MD Consulting Unavailab SETH Thompson Attending Unavailable SETH BASSETT Primary Care Unavailable SETH BASSETT Admitting Unavailable PROVIDER, UNKNOWN Consulting Unavailable Problems Problem Classification Problem Date Documented Da te Episodic/Chronic Immunizations and screening for infectious disease (2 sources) Contact with and (suspected) exposure to other viral communicable diseases; Translations: [Contact with and (suspected) exposure to other viral communicable diseases] Onset: 09-03-2020 Episodic Regional enteritis and ulcerative colitis (2 sources) Crohn's disease, unspecified, without complications; Translations: [Crohn's disease, unspecified, without complications] Onset: 02-08-2018 Chronic Unclassified (1 source) COVID-19; Translations: [COVID-19] Onset: 09-03-2020 Results Test Name Value Interpretation Reference Range Facil ity Encounters Encounter Date Encounter Type Care Provider Facility Start: 09-03-2020 End: 09-03-2020 Patient encounter procedure VENKATESH CASIANO [facility] Start: 02-08-2018 End: 02-13-2018 Ambulatory [facility] Payers Date Payer Category Payer Unknown [id number] 1995 Unknown [id number] Unknown Summary Purpose Family History No Family History Records FoundNo Family History Records FoundNo Family History Records Found Advance Directives No Advanced Directives Records FoundNo Advanced Directives Records FoundNo Advanced Directives Records Found Additional Source Comments (unrecognized sect ion and content) No Status Records FoundNo Status Records FoundNo Status Records Found INFORMATION SOURCE (unrecogn ized section and content) DATE CREATED AUTHOR AUTHOR'S MARIN ATION 09/06/2020 [facility] DATE CREATED AUTHOR AUTHOR'S MARIN ATION 09/11/2020 [facility] FOR RECORDS PERTAINING TO PATIENTS WHO ARE OR HAVE BEEN ENROLLED IN A CHEMICAL DEPENDENCY/SUBSTANCEABUSE PROGRAM, SOME INFORMATION MAY BE OMITTED. This clinical summary was aggregated from multiple sources. Caution should be exercised in using it in the provision of clinical care. This summary normalizes information from multiple sources, and as a consequence, information in this document may materially change the coding, format and clinical context of patient data. In addition, data may be omitted in some cases. CLINICAL DECISIONS SHOULD BE BASED ON THE PRIMARY CLINICAL RECORDS. [facility]. provides no warranty or guarantee of the accuracy or completeness of information in this document.
[2023-11-07 13:54] LABS: Free T3 2.8 pg/mL (2.18-3.98); T4 Free Direct 0.86 ng/dL (0.76-1.46)
[2023-11-09 18:08] LABS: Anti-Thyroglobulin AB < 1.0 IU/mL (0.0-0.9); Thyroglobulin, Serum Qt. 11.5 ng/mL (1.4-29.2)
== END | disposition home or self-care (01) ==
LOC: PAVLAB 12:27
PROVIDERS: PCP Family Medicine; Referring Provider Surgery; Visit Provider Surgery
DX: E89.0 Postprocedural hypothyroidism (principal)
CPT/HCPCS: 36415; 84432; 84439; 84443; 84481; 86800

== ENCOUNTER → 2024-03-21 | Outpatient (CLI) | payer BC, SELFPAY ==
[2024-03-21 12:57] LABS: AST(SGOT) 20 U/L (15-37); Alanine Aminotransfer ALT/SGPT 36 U/L (16-61); Albumin, Serum 3.9 g/dL (3.2-5.0); Alkaline Phosphatase 58 U/L (45-117); Anion Gap 7 (5-15); BUN 14 mg/dL (7-18); BUN/Creat Ratio 16.6 RATIO (10-20); Calcium,Total 8.9 mg/dL (8.5-10.1); Chloride 106 mmol/L (98-107); Creatinine, Serum 0.84 mg/dL (0.70-1.30); EST Glomerular Filtration Rate 115 mL/min (>60); Est Glom Filt Rate - Afr Amer 139 mL/min (>60); Globulin 3.9 g/dL (2.2-4.2); Glucose 85 mg/dL (74-106); Potassium 3.8 mmol/L (3.5-5.1); Protein, Total 7.8 g/dL (6.4-8.2); Sodium Level 140 mmol/L (136-145); T4 Free Direct 0.86 ng/dL (0.76-1.46); Thyroid Stim Hormone (TSH) 1.57 uIU/mL (0.358-3.74)
[2024-03-22 08:10] LABS: Thyroid Peroxidase AB < 9 IU/mL (0-34)
== END | disposition home or self-care (01) ==
LOC: LAB 10:35
PROVIDERS: PCP Family Medicine; Referring Provider Internal Medicine Endocrinology, Diabetes & Metabolism; Visit Provider Internal Medicine Endocrinology, Diabetes & Metabolism
DX: C73 Malignant neoplasm of thyroid gland (principal)
CPT/HCPCS: 36415; 80053; 84439; 84443; 86376

== ENCOUNTER → 2024-05-20 | Outpatient (CLI) | payer BC, SELFPAY ==
[2024-05-20 17:38] LABS: Ionized Calcium Order ORDER TUBE
[2024-05-20 18:00] LABS: Ionized Calcium 5.06 mg/dL (4.36-5.20)
[2024-05-20 18:24] LABS: Anion Gap 5 (5-15); BUN 13 mg/dL (7-18); BUN/Creat Ratio 14.8 RATIO (10-20); Calcium,Total 9.4 mg/dL (8.5-10.1); Chloride 106 mmol/L (98-107); Creatinine, Serum 0.88 mg/dL (0.70-1.30); EST Glomerular Filtration Rate 110 mL/min (>60); Est Glom Filt Rate - Afr Amer 133 mL/min (>60); Free T3 2.6 pg/mL (2.18-3.98); Glucose 93 mg/dL (74-106); Magnesium 2.5 mg/dL (1.6-2.6); Potassium 3.8 mmol/L (3.5-5.1); Sodium Level 141 mmol/L (136-145); T4 Free Direct 0.76 ng/dL (0.76-1.46)
[2024-05-20 19:19] LABS: PTHIN 59.6 pg/mL (18.4-80.1)
== END | disposition home or self-care (01) ==
LOC: MTLAB 16:31
PROVIDERS: PCP Family Medicine; Referring Provider Family Medicine; Visit Provider Family Medicine
DX: C73 Malignant neoplasm of thyroid gland (principal); R20.2 Paresthesia of skin
CPT/HCPCS: 80048; 82330; 83735; 83970; 84439; 84443; 84481

== ENCOUNTER → 2024-10-27 | Outpatient (CLI) | payer BC, SELFPAY ==
--- NOTE | 2024-10-27 11:59 | US_ITS ---
PROCEDURE: ULTRASOUND THYROID REASON FOR EXAM: Status post Left parag-thyroidectomy. TECHNIQUE: Real-time grayscale and color imaging was performed. Routine image documentation. COMPARISON: No relevant prior. FINDINGS: Right thyroid lobe measures 5.0 x 2.0 x 1.9 cm. Left thyroid lobe is surgically absent. Isthmus thickness is 0.3 cm.. Thyroid Size: Normal right thyroid lobe. Background Echotexture: Homogeneous texture. Thyroid Nodules: None US/Thyroid IMPRESSION: 1. Status post left parag-thyroidectomy. 2. Normal right thyroid lobe. Reading Location: [facility]
== END | disposition home or self-care (01) ==
PROVIDERS: PCP Family Medicine; Referring Provider Surgery; Visit Provider Surgery
DX: E89.0 Postprocedural hypothyroidism (principal); C73 Malignant neoplasm of thyroid gland
CPT/HCPCS: 76536

== ENCOUNTER → 2024-11-29 | Outpatient (CLI) | payer BC, SELFPAY ==
[2024-12-03 09:08] LABS: Anti-Thyroglobulin AB < 1.0 IU/mL (0.0-0.9); Thyroglobulin, Serum Qt. 4.4 ng/mL (1.4-29.2)
== END | disposition home or self-care (01) ==
LOC: LAB 08:43
PROVIDERS: PCP Family Medicine; Referring Provider Internal Medicine Endocrinology, Diabetes & Metabolism; Visit Provider Internal Medicine Endocrinology, Diabetes & Metabolism
DX: E89.0 Postprocedural hypothyroidism (principal); C73 Malignant neoplasm of thyroid gland
CPT/HCPCS: 36415; 84432; 84439; 84443; 86800

== ENCOUNTER → 2025-07-13 | Outpatient (CLI) | payer BC, SELFPAY ==
--- OUTSIDE RECORDS SUMMARY | 2025-07-13 07:24 | XMS RPT_ITS | CCD ---
Author Organization [facility] Care Team Providers Care Top Lift Scourer Name Role Phone ATILIO SOOD Unavailable Unavailable VENKATESH COLBERT MD Consulting Unavailab SETH Thompson Attending Unavailable SETH BASSETT Primary Care Unavailable SETH BASSETT Admitting Unavailable PROVIDER, UNKNOWN Consulting Unavailable Dr. Kade Colbert Primary Care Provider Dr. Kade Colbert Referring Provider Dr. Calixto Crump Attending Provider Dr. Calixto Crump Other Provider Iker Guzmán Attending Unavailable Ranney, Christopher Primary Care Unavailable Ranney, Christopher Referring Unavailable Iker Guzmán Attending Unavailable RamirezIker Referring Unavailable Ranney, Christopher Primary Care Unavailable Ranney, Christopher Primary Care Unavailable Ranney, Christxanderer Attending Unavailable Ranney, Christopher Referring Unavailable RamirezIker Attending Unavailable Ramirez, Iker Referring Unavailable Ranney, Christopher Primary Care Unavailable Iker Guzmán Attending Unavailable Ranney, Christopher Referring Unavailable Ranney, Christopher Primary Care Unavailable Calixto Crump Attending Unavailable Calixto Crump Referring Unavailable Omidney, Christopher Primary Care Unavailable Calixto Crump Attending Unavailable Ranney, Christopher Referring Unavailable Ranney, Christopher Primary Care Unavailable Dr. Venkatesh Colbert MD Primary Care Provider Dr. Calixto Crump MD Attending Provider Dr. Calixto Crump MD Referring Provider Dr. Venkatesh Colbert MD Referring Provider Dr. Iker Guzmán MD Attending Provider Dr. Iker Guzmán MD Referring Provider Allergies Allergy Classification Reported Allergen(s) Allergy Type Date of Onset Reaction(s) Facility (7 sources) Ondansetron Drug Allergy 0 lightheaded, nausea [facility] (1 source) Ondansetron Drug Allergy 5 [facility] Repository Medications Current Medications Medication Drug Class(es) Dates Sig (Normalized) Sig (Original) cetirizine hydrochloride 10 mg oral capsule (4 sources) Histamine-1 Receptor Antagonist Start: 08-09-2023 take 1 capsule by mouth once daily as needed Cetirizine (Zyrtec) 10 mg capsule Active 10 mg PO DAILY as needed for allergy symptoms August 09, 2023 1:00am cholecalciferol 0.05 mg oral capsule (4 sources) Vitamin D Start: 08-09-2023 take 1 capsule by mouth once daily Cholecalciferol (Vitamin D3) 50 mcg (2,000 unit) capsule Active 50 ug PO DAILY August 09, 2023 1:00am docusate sodium 100 mg oral capsule (10 sources) Start: 09-07-2023 take 1 capsule by mouth once daily Docusate Sodium 100 MG capsule Active 100 mg PO DAILY September 07, 2023 1:00am Start: 04-21-2020 End: 09-07-2023 take 1 capsule by mouth twice daily Docusate Sodium 100 MG capsule Discontinued 100 mg PO TWICE A DAY April 21, 2020 12:00am September 07, 2023 9:11am escitalopram 10 mg oral tablet (7 sources) Serotonin Reuptake Inhibitor Start: 04-08-2020 take 1 tablet by mouth once daily Escitalopram Oxalate 10 mg tablet Active 10 mg PO DAILY April 08, 2020 12:00am lactobacillus acidophilus 1.5 mg oral capsule (3 sources) Start: 09-07-2023 Lactobacillus Acidophilus (Probiotic Acidophilus) 250 million cell capsule Active 500 NMA PO DAILY September 07, 2023 1:00am levothyroxine sodium 0.088 mg oral tablet (1 source) l-Thyroxine Start: 08-07-2024 take 1 tablet by mouth once daily Levothyroxine 88 mcg tablet Active 88 ug PO daily August 07, 2024 1:00am omeprazole 20 mg delayed release oral capsule (7 sources) Proton Pump Inhibitor Start: 04-14-2020 take 2 capsules by mouth once daily as needed Omeprazole 20 MG capsule Active 40 mg PO DAILY as needed for Indigestion April 14, 2020 12:00am Start: 04-14-2020 take 40 mg by mouth once daily Omeprazole Active 40 MG PO DAILY April 13, 2020 11:00pm Start: 04-14-2020 take 20 mg by mouth once daily Omeprazole Active 20 MG PO DAILY April 13, 2020 11:00pm Completed/Discontinued Medications Medication Drug Class(es) Dates Sig (Normalized) Sig (Original) acetaminophen 325 mg / oxyCODONE hydrochloride 5 mg oral tablet (7 sources) Opioid Agonist Start: 04-21-2020 End: 04-26-2020 Oxycodone-Acetamino phen 1 EACH tablet Discontinued 1 - 2 {tbl} PO EVERY 6 HOURS as needed for Pain Score 4-10/10 50 5 April 21, 2020 April 25, 2020 12:00am April 26, 2020 12:02am Start: 04-21-2020 End: 04-26-2020 take 1 tablet by mouth every six hours Oxycodone-Acetaminophen Discontinued 1 - 2 TABLET PO EVERY 6 HOURS 50 5 April 21, 2020 April 25, 2020 11:02pm Problems Problem Classification Problem Date Documented Date Episodic/Chronic Cancer of thyroid (10 sources) Papillary thyroid carcinoma; Translations: [Malignant neoplasm of thyroid gland] Onset: 08-07-2024 08-13-2023 Chronic Comment on above: This is a 28-year-ol d male with newly diagnosed left-sided papillary thyroid carcinoma. This was diagnosed via FNA of a solitary 2.7 cm left-sided nodule. However, patient's thyroid cancer summary and final pathology showed that this tumor was significantly larger than what was seen sonographically and had a final diameter of 3.8 cm. Still, this makes this a T2 tumor and margins were free of tumor. Additionally, pathology did not identify any pathologic features that would portend adverse outcome or increased the final MAXIMILIANO classification (no extrathyroidal extension, no extranodal extension, no angioinvasion, ). Therefore, I shared with Mr. Vargas that I do not believe he will require postoperative radioactive iodine therapy, but do believe he should be closely surveilled for any recurrence within the right thyroid lobe. Will plan to make referral to endocrinology to establish following.Update 11/03/2024: Patient appears to be doing very well at his 1 year anniversary from partial thyroidectomy for a 3.8 centimeter left sided papillary thyroid carcinoma. There are no signs of structural recurrence per his recent ultrasound or his exam today. I am glad to see that he was receptive to undergo thyroid hormone supplementation as I believe this will potentially be beneficial to reducing his risk for recurrence in addition to improving his wellbeing. I advised him at today's visit that we would plan to continue surveillance for 1 more year as most recurrences of papillary thyroid cancer are detected in the first 2 years following index resection. Mr. Vargas is receptive so we will place him into recall for repeat thyroid ultrasound in 1 year. Complications of surgical procedures or medical care (4 sources) Postprocedural hypothyroidism; Translations: [Other specified disorders of thyroid] Onset: 12-09-2024 10-03-2023 Chronic Hemorrhoids (7 sources) Internal hemorrhoids grade II; Translations: [Second degree hemorrhoids] 04-21-2020 Episodic Immunizations and screening for infectious disease (2 sources) Contact with and (suspected) exposure to other viral communicable diseases; Translations: [Contact with and (suspected) exposure to other viral communicable diseases] Onset: 09-03-2020 Episodic Regional enteritis and ulcerative colitis (2 sources) Crohn's disease, unspecified, without complications; Translations: [Crohn's disease, unspecified, without complications] Onset: 02-08-2018 Chronic Thyroid disorders (9 sources) Thyroid nodule; Translations: [Nontoxic single thyroid nodule] 08-09-2023 Chronic Comment on above: This is a 28-year-ol d male, euthyroid from an endocrine standpoint, who presents for a newly diagnosed left thyroid nodule that arose out of a work-up for complaints of chest tightness and hoarseness. It is difficult to attribute his hoarseness directly to his thyroid nodule as he reports some improvement simply with taking omeprazole empirically. Thyroid ultrasound obtained 07/18/2023 was read by radiology as consistent with a TI-RADS 4 nodule, however, in the body of the impression they did note that the nodule was partially calcified but do not appear to account for this finding in their final TI-RADS rating. I have shared with Mr. Vargas that I would make less of his irregular contour and reintroduced the calcification observation thereby raising his TI-RADS rating to a 5 (7 total points given 3 4 presence of punctate echogenic foci). I also shared with him the notes mildly concerned for possible evidence of extrathyroidal extension based on his ultrasound that was done formally at the hospital, but in my own exam did not find evidence of this feature. At either TI-RADS rating given the dimension of his thyroid nodule exceeded 1.5 cm the ACR recommendation would be to proceed with biopsy and this recommendation was extended the patient. He was receptive of this recommendation and the biopsy procedure was undertaken in uncomplicated fashion during his consultation visit. See appended documentation for details. He has a number of questions related to the possibility of this representing cancer and I tried to remain at a surface level with my comments, but did inform him that surgery would be recommended. Unclassified (1 source) COVID-19; Translations: [COVID-19] Onset: 09-03-2020 Results Test Name Value Interpretation Reference Range Facility Thyroglobulin w/Anti-TG ABon 12-03-2024 Anti-TG AB < 1.0 Normal 0.0-0.9 [facility] Comment on above: Order Comment: Reaso n for Laboratory Test x Result Comment: Thyr oglobulin Antibody measured by Latoya Windsor Methodology It should be noted that the presence of thyroglobulin antibodies may not be pathogenic nor diagnostic, especially at very low levels. The assay project development manager has found that four percent of individuals without evidence of thyroid disease or autoimmunity will have positive TgAb levels up to 4 IU/mL. Performed By: #### L 3300.6820, L501.9520, L506.0400 #### [facility] [address] [place], [place], [address] THYROGLOB QUANT 4.4 ng/mL Normal 1.4-29.2 [facility] Comment on above: Order Comment: Reaso n for Laboratory Test x Result Comment: Acco rding to the National Academy of Clinical Biochemistry, the reference interval for Thyroglobulin (TG) should be related to euthyroid patients and not for patients who underwent thyroidectomy. TG reference intervals for these patients depend on the residual mass of the thyroid tissue left after surgery. Establishing a post-operative baseline is recommended. The assay limit of quantitation is 0.1 ng/mL Thyroglobulin measured by Latoya Yeison Immunometric Assay Performed at: [facility] [id number] Project Development Manager: Atilio Davis PhD, Phone: [phone] Performed By: #### L 3300.6820, L501.9520, L506.0400 #### [facility] [address] [place], [place], [id number] T4 Free Directon 11-29-2024 T4 FREE DIRECT 1.20 ng/dL Normal 0.76-1.46 [facility] Comment on above: Performed By: #### L 3300.6820, L501.9520, L506.0400 #### [facility] [address] [place], [place], [id number] T4 freeOrdered By: Iker Guzmán on 11-29-2024 Free T4 [Mass/Vol] 1.20 ng/dL 0.76-1.46 [facility] TSH DL <= 0.005 mIU/L QnOrde red By: Iker Guzmán on 11-29-2024 Thyroid Stimulating Hormone (TSH) 1.150 uIU/mL 0.300-4.200 [facility] Thyroglobulin Ab serumOrdere d By: Iker Guzmán on 11-29-2024 Thyroglobulin Antibody < 1.0 IU/mL 0.0-0.9 [facility] Comment on above: Thyroglobulin Antibo dy measured by Latoya CoulterMethodologyIt should be noted that the presence of thyroglobulinantibodies may not be pathogenic nor diagnostic, especiallyat very low levels. The assay project development manager has found thatfour percent of individuals without evidence of thyroiddisease or autoimmunity will have positive TgAb levels upto 4 IU/mL. Thyroglobulin serOrdered By: Iker Guzmán on 11-29-2024 Thyroglobulin Level 4.4 ng/mL 1.4-29.2 [facility] Comment on above: According to the [employer] Academy of Clinical Biochemistry,the reference interval for Thyroglobulin (TG) should berelated to euthyroid patients and not for patients whounderwent thyroidectomy. TG reference intervals for thesepatients depend on the residual mass of the thyroid tissueleft after surgery. Establishing a post-operative baselineis recommended. The assay limit of quantitation is 0.1ng/mLThyroglobulin measured by Latoya AMT ImmunometricAssayPerformed at: - [facility] [id number] [place], [place] [id number] Director: Atilio Davis PhD, Phone: [phone] Thyroid Stim Hormone (TSH)on 11-29-2024 TSH 1.150 uIU/mL Normal 0.300-4.200 [facility] Comment on above: Performed By: #### L 3300.6820, L501.9520, L506.0400 #### [facility] [address] [place], [address] Surgery Visit Reporton 11-03 Surgery Visit Report [facility] [address] [place] [address] OFFICE VISIT Date of Service: 11/03/24 MR#: [id number] Acct: [id number] Name: MIRANDA VARGAS Rep #: [id number] : 1995 Provider: Dr. Calixto cui MD Age/Sex: 29/M Location: [facility] Status: Signed Intake Vital Signs 08/07/24 10:06 11/03/24 09:54 Height 5 ft 8 in Weight: 176 lb 2 oz BMI 26.7 BP 128/84 H 124/73 H Blood Pressure Location Rt brachial Rt brachial Position Sitting Sitting Respiration 17 Pulse 87 104 H Pulse Source Monitor Monitor Temp 96.8 F L Temp Source Temporal Pulse Oximetry (%) 98 98 Oxygen Delivery Method room air room air Intake Visit Reasons: THYROID U/S RESULTS Chief Complaint: Thyroid u/s results Is patient in pain?: No Allergies ondansetron (From Zofran) Adverse Reaction (Mild, Verified 11/03/24 09:55) lightheaded, nausea Medications ???Medication ???Instructions ???Recorded ???Confirmed ???Type escitalopram oxalate 10 mg tablet 10 mg PO DAILY 04/08/20 11/03/24 History omeprazole 20 mg capsule,delayed 40 mg PO DAILY PRN Indigestion 11/03/24 History release cetirizine 10 mg capsule (Zyrtec) 10 mg PO DAILY PRN allergy sympto ms 08/09/23 11/03/24 History cholecalciferol (vitamin D3) 50 50 mcg PO DAILY 08/09/23 11/03/24 History mcg (2,000 unit) capsule Lactobacillus acidophilus 250 500 mmu cells PO DAILY 09/07/23 History million cell capsule (Probiotic Acidophilus) docusate sodium 100 mg capsule 100 mg PO DAILY 09/07/23 11/03/24 History levothyroxine 88 mcg tablet 88 mcg PO QDAY #90 tabs 08/07/24 0 11/03/24 Rx PFSH Medical History Hypothyroidism associated with surgical procedure Wears glasses Cancer Thyroid disease Syncope History of IBS Non-smoker Complex second degree hemorrhoid Anxiety GERD (gastroesophageal reflux disease) Surgical History S/P thyroidectomy Hx of hemorrhoidectomy History of arthroscopic knee surgery History of colonoscopy Family History Mother Hypertension Grandfather Heart disease Hypertension Melanoma Social History Smoking Status: Never smoker HPI HPI HPI: Patient is now a 29-year-old male who presents for a surveillance visit after he was diagnosed with thyroid cancer last year and underwent left thyroid lobectomy with isthmusectomy on 09/14/2023. He reports to today's visit denying any present concerns. Specifically, he denies noting any new nodularity of his neck. He adds that it was a night and day difference after beginning thyroid hormone supplement with endocrinology and made [him] feel a lot better. He has not yet rechecked his thyroid function tests since starting this medication in July but reports that he was counseled to plan to do so in the next 12 weeks. Mr. San completed a surveillance thyroid ultrasound on 10/27/2024 but has not received those results. ROS General General: No weight change, appetite, fatigue, colon cancer, breast cancer or weakness HEENT HEENT: No difficulty swallowing, eye injury, eye surgery, swollen glands or hoarseness Endo Endocrine: Yes thyroid disease; No diabetes mellitus, thyroid cancer, Hair loss, heat intolerance or cold intolerance Skin Skin: No rash or changing moles Musc Musculoskeletal: No back problems, arthritis, rheumatoid arthritis, gout or joint pain Cardio Cardiovascular: No murmur, pacemaker, heart disease, atrial fibrillation, high blood pressure, heart attack, heart stent, palpitations, shortness of breat with exertion or chest pain Psych Psychiatric: Yes anxiety; No depression or hearing voices Resp Respiratory: No shortness of breath, No sleep apnea, No cough, No COPD, No asthma, No emphysema and No wheezing Gastro Gastrointestinal: No abdominal pain, No nausea or vomiting, No diarrhea, Yes constipation, No blood in stool, No acid reflux, Yes hemorrhoids, No ulcers, No gallbladder problem and No black,tarry stools Ganesh Hematologic: No blood thinners, No blood disorders, No bleeding, No anemia and No blood clots Neuro Neurologic: No system reviewed and no additional complaints, except as documented, No as per HPI, No abnormal gait, No abnormal hearing, No abnormal movements, No abnormal speech, No behavioral changes, No burning sensations, No confusion, No convulsions, No disequilibrium, No dizziness, No localized weakness, No frequent falls, No headache(s), No lack of coordination, No loss of vision, No memory loss, No numbness, No other visual disturbances, No radicular pain, No restless l (more content not included)... Normal [facility] Thyroidon 10-27-2024 Thyroid [facility] [address] [place] [address] Thyroid MR#: [id number] Acct: [id number] Name: MIRANDA VARGAS Rep #: [id number] : 1995 M 29 From: Wero Ortez MD PCP: Dr. Venkatesh Colbert MD Status: REG CLI Study: Thyroid Date of Exam: 10/27/24 Exam# [id number] Ordering Dr: Calixto Crump MD PROCEDURE: ULTRASOUND THYROID REASON FOR EXAM: Status post Left parag-thyroidectomy. TECHNIQUE: Real-time grayscale and color imaging was performed. Routine image documentation. COMPARISON: No relevant prior. FINDINGS: Right thyroid lobe measures 5.0 x 2.0 x 1.9 cm. Left thyroid lobe is surgically absent. Isthmus thickness is 0.3 cm.. Thyroid Size: Normal right thyroid lobe. Background Echotexture: Homogeneous texture. Thyroid Nodules: None US/Thyroid IMPRESSION: 1. Status post left parag-thyroidectomy. 2. Normal right thyroid lobe. Reading Location: [facility] CC: Dr. Venkatesh Colbert MD; Dr. Calixto Crump MD Top Lift Trimmer: Signed Normal [facility] Endocrinology Visit Reporton 08-07-2024 Endocrinology Visit Report [facility] [address] [place] [address] OFFICE VISIT Date of Service: 08/07/24 MR#: [id number] Acct: [id number] Name: MIRANDA VARGAS Rep #: [id number] : 1995 Provider: Tunde Garnica Age/Sex: 29/M Location: [facility] Status: Signed Intake Vital Signs 12/21/23 08:21 08/07/24 10:06 Height 5 ft 8 in 5 ft 8 in Weight: 166 lb 176 lb 2 oz BMI 25.2 26.7 BP 132/74 H 128/84 H Blood Pressure Location Lt brachial Rt brachial Position Sitting Sitting Pulse 80 87 Pulse Source Monitor Monitor Temp 98.6 F Temp Source Temporal Pulse Oximetry (%) 99 98 Oxygen Delivery Method room air room air Intake Visit Reasons: 8 M FU Chief Complaint: Thyroid cancer Is patient in pain?: No Allergies ondansetron (From Zofran) Adverse Reaction (Mild, Verified 12/21/23 08:28) lightheaded, nausea Medications ???Medication ???Instructions ???Recorded ???Confirmed ???Type escitalopram oxalate 10 mg tablet 10 mg PO DAILY 04/08/20 08/07/24 History omeprazole 20 mg capsule,delayed 40 mg PO DAILY PRN Indigestion 04/14/20 08/07/24 History release cetirizine 10 mg capsule (Zyrtec) 10 mg PO DAILY PRN allergy symptoms 08/09/23 08/07/24 History cholecalciferol (vitamin D3) 50 50 mcg PO DAILY 08/09/23 08/07/24 History mcg (2,000 unit) capsule Lactobacillus acidophilus 250 500 mmu cells PO DAILY 09/07/23 08/07/24 History million cell capsule (Probiotic Acidophilus) docusate sodium 100 mg capsule 100 mg PO DAILY 09/07/23 08/07/24 History levothyroxine 88 mcg tablet 88 mcg PO QDAY #90 tabs 08/07/24 08/07/24 Rx PFSH Medical History Hypothyroidism associated with surgical procedure Wears glasses Cancer Thyroid disease Syncope History of IBS Non-smoker Complex second degree hemorrhoid Anxiety GERD (gastroesophageal reflux disease) Surgical History S/P thyroidectomy Hx of hemorrhoidectomy History of arthroscopic knee surgery History of colonoscopy Family History Mother Hypertension Grandfather Heart disease Hypertension Melanoma Social History Smoking Status: Never smoker HPI HPI Chief Complaint: Thyroid cancer Details: MIRANDA VARGAS, is a 29 M who presents to the office today for follow up. He presented to his doctor with heartburn symptoms. During exam a left thyroid nodule was discovered. 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 No vascular or lymphatic invasion. He is one year s/p lobectomy. He has a 6 month old daughter. He is complaining of fatigue, dizziness and increased emotions. Last TSH in April was 3.75. He wanted to avoid medication if possible. ROS Const Constitutional: Positive for fatigue; No weight change or change in appetite Eyes Eyes: No change in vision ENT ENT: Positive for dizziness/vertigo; No difficulty swallowing Cardio Cardiology: No chest pain at rest, chest pain with exertion, shortness of breath or palpitations Musc Musculoskeletal: No abnormal gait, joint pain, numbness or tingling Neuro Neurology: No abnormal gait, memory loss, numbness or tingling Psych Psychiatric: Positive for anxiety, No change in appetite, Positive for irritability, No memory loss and No Thoughts of harming yourself/Others Resp Respiratory: No cough, chest congestion or shortness of breath Gastro GI: No abdominal pain, constipation, diarrhea or difficulty swallowing Genitourinary Male: No burning urination Skin Skin: No itchy eyes or wounds Endo Endocrine: Positive for fatigue; No weight change Aller/Imm Allergy/Immunologic: No itchy eyes Exam Const General: cooperative, healthy appearing, comfortable, no acute distress, well developed and not cushingoid Nutritional Appearance: well nourished Orientation: alert, awake and oriented x3 HENMT Head: normal to inspection Ears: hearing grossly normal bilaterally and other (cerumen impaction bilaterally) Nose: external nose normal Mouth: oral mucosae normal Eyes General: appearance normal, both eyes and all related structures Alignment and Position: alignment normal Periorbital: periorbital findings normal Eyelids: eyelids normal Conjunctivae: conjunctivae normal Neck Neck: normal visual inspection Neck mass: No Thyroid: asymmetrical (L lobe absent) Lymphatic: no lymphadenopathy noted Chest Chest palpation inspection: normal inspection of the chest Resp Effort Inspection: normal respiratory effort, able to speak in complete sentences, symmetric chest movement, no au (more content not included)... Normal [facility] Basic Metabolic Profile (BMP )on 05-20-2024 BUN/CRE 14.8 RATIO Normal 10-20 [facility] Comment on above: Order Comment: Order Date: 05/20/24Order Info: [id number] - BMPOrder Info: [id number] - MGOrder Info: [id number] - [id number] Info: [id number] - TSHOrder Info: [id number] - T4F Performed By: #### L 500.2500, L501.45834, L509.1000, L501.9520, L501.5200, L506.0400 ####[facility] [address] [place], [address] CA,Total 9.4 mg/dL Normal 8.5-10.1 [facility] Comment on above: Order Comment: Order Date: 05/20/24Order Info: [id number] - BMPOrder Info: [id number] - MGOrder Info: [id number] - [id number] Info: [id number] - TSHOrder Info: [id number] - T4F Performed By: #### L 500.2500, L501.97892, L509.1000, L501.9520, L501.5200, L506.0400 ####[facility] [address] [place], [address] Chloride [Moles/Vol] 106 mmol/L Normal 98-107 [facility] Comment on above: Order Comment: Order Date: 05/20/24Order Info: [id number]- - BMPOrder Info: [id number] - MGOrder Info: [id number] - [id number] Info: 3016-3 - TSHOrder Info: 3024-7 - T4F Performed By: #### L 500.2500, L501.97454, L509.1000, L501.9520, L501.5200, L506.0400 ####[facility] [address] [place], [address] CO2 [Moles/Vol] 30.0 mmol/L Normal 21.0-32.0 [facility] Comment on above: Order Comment: Order Date: 05/20/24Order Info: 666-09 - BMPOrder Info: [id number] - MGOrder Info: 3051-0 - D9KGfkdn Info: 3016-3 - TSHOrder Info: 3024-7 - T4F Performed By: #### L 500.2500, L501.54515, L509.1000, L501.9520, L501.5200, L506.0400 ####[facility] [address] [place], [address] Creatinine [Mass/Vol] 0.88 mg/dL Normal 0.70-1.30 [facility] Comment on above: Order Comment: Order Date: 05/20/24Order Info: 666-09 - BMPOrder Info: [id number] - MGOrder Info: 3051-0 - T6KBmeja Info: 3016-3 - TSHOrder Info: 3024-7 - T4F Result Comment: The validity of the calculated GFR GFRAA in patients over 70 years has not been determined. Clinical correlation is essential. Performed By: #### L 500.2500, L501.74979, L509.1000, L501.9520, L501.5200, L506.0400 ####[facility] [address] [place], [address] EST GFR - AA 133 mL/min Normal >60 [facility] Comment on above: Order Comment: Order Date: 05/20/24Order Info: 666- - BMPOrder Info: 16586-7 - MGOrder Info: 3051-0 - D9XAbclo Info: 3016-3 - TSHOrder Info: 3024-7 - T4F Result Comment: Afri can Libyan GFR Calc Performed By: #### L 500.2500, L501.18008, L509.1000, L501.9520, L501.5200, L506.0400 ####[facility] [address] [place], [place], [address] GAP 5 Normal 5-15 [facility] Comment on above: Order Comment: Order Date: 05/20/24Order Info: 666-09 - BMPOrder Info: [id number] - MGOrder Info: 3051-0 - H9ZZwbdh Info: 3016-3 - TSHOrder Info: 3024-7 - T4F Performed By: #### L 500.2500, L501.64020, L509.1000, L501.9520, L501.5200, L506.0400 ####[facility] [address] [place], [place], [address] GFR/1.73 sq M.predicted among non-blacks MDRD (S/P/Bld) [Vol rate/Area] 110 mL/min/{1.73_m2} Normal >60 [facility] Comment on above: Order Comment: Order Date: 05/20/24Order Info: 666- - BMPOrder Info: [id number] - MGOrder Info: 3051-0 - H3WGocez Info: 3016-3 - TSHOrder Info: 3024-7 - T4F Result Comment: Non- GFR Calc Performed By: #### L 500.2500, L501.36839, L509.1000, L501.9520, L501.5200, L506.0400 ####[facility] [address] [place], [address] Glucose [Mass/Vol] 93 mg/dL Normal 74-106 [facility] Comment on above: Order Comment: Order Date: 05/20/24Order Info: 666- - BMPOrder Info: [id number] - MGOrder Info: 3051-0 - T7OPkalv Info: 3016-3 - TSHOrder Info: 3024-7 - T4F Performed By: #### L 500.2500, L501.77274, L509.1000, L501.9520, L501.5200, L506.0400 ####[facility] [address] [place], [address] Potassium [Moles/Vol] 3.8 mmol/L Normal 3.5-5.1 [facility] Comment on above: Order Comment: Order Date: 05/20/24Order Info: 666-09 - BMPOrder Info: 60963-0 - MGOrder Info: 3050-0 - R6JVlbdk Info: 3016-3 - TSHOrder Info: 3024-7 - T4F Performed By: #### L 500.2500, L501.51287, L509.1000, L501.9520, L501.5200, L506.0400 ####[facility] [address] [place], [address] Sodium [Moles/Vol] 141 mmol/L Normal 136-145 [facility] Comment on above: Order Comment: Order Date: 05/20/24Order Info: 666-09 - BMPOrder Info: 28609-5 - MGOrder Info: 305-0 - V5ASpklk Info: 3016-3 - TSHOrder Info: 3024-7 - T4F Performed By: #### L 500.2500, L501.32654, L509.1000, L501.9520, L501.5200, L506.0400 ####[facility] [address] [place], [address] Urea nitrogen [Mass/Vol] 13 mg/dL Normal 7-18 [facility] Comment on above: Order Comment: Order Date: 05/20/24Order Info: 666- - BMPOrder Info: 15650-2 - MGOrder Info: 3051-0 - E6YLzzvx Info: 3016-3 - TSHOrder Info: 302-7 - T4F Performed By: #### L 500.2500, L501.73147, L509.1000, L501.9520, L501.5200, L506.0400 ####[facility] [address] [place], [address] Free T3on 05-20-2024 Free T3 [Mass/Vol] 2.6 pg/mL Normal 2.18-3.98 [facility] Comment on above: Order Comment: Order Date: 05/20/24Order Info: 666-09 - BMPOrder Info: 21541-0 - MGOrder Info: 3051-0 - L4VPwwcs Info: 3016-3 - TSHOrder Info: 3023-7 - T4F Performed By: #### L 500.2500, L501.23445, L509.1000, L501.9520, L501.5200, L506.0400 ####[facility] [address] [place], [address] L501.2276on 05-20-2024 Ionized Calcium 5.06 mg/dL Normal 4.36-5.20 [facility] Comment on above: Performed By: #### L 501.2276 ####[facility] [address] [place], [address] Magnesiumon 05-20-2024 Magnesium [Mass/Vol] 2.5 mg/dL Normal 1.6-2.6 [facility] Comment on above: Order Comment: Order Date: 05/20/24Order Info: 666-09 - BMPOrder Info: [id number] - MGOrder Info: 3051-0 - J5YIhioj Info: 3016-3 - TSHOrder Info: 3024-7 - T4F Performed By: #### L 500.2500, L501.28551, L509.1000, L501.9520, L501.5200, L506.0400 ####[facility] [address] [place], [address] PTHINon 05-20-2024 PTH 59.6 pg/mL Normal 18.4-80.1 [facility] Comment on above: Order Comment: Order Date: 05/20/24Order Info: 0565-1 - PTHIN Performed By: #### L 500.2500, L501.67373, L509.1000, L501.9520, L501.5200, L506.0400 ####[facility] [address] [place], [place], [address] T4 Free Directon 05-20-2024 T4 FREE DIRECT 0.76 ng/dL Normal 0.76-1.46 [facility] Comment on above: Order Comment: Order Date: 05/20/24Order Info: 06- - BMPOrder Info: 01300-3 - MGOrder Info: 3051-0 - G4VVatwj Info: 3016-3 - TSHOrder Info: 302- - T4F Performed By: #### L 500.2500, L501.80537, L509.1000, L501.9520, L501.5200, L506.0400 ####[facility] [address] [place], [place], [address] Thyroid Stim Hormone (TSH)on 05-20-2024 TSH 3.750 uIU/mL High 0.358-3.740 [facility] Comment on above: Order Comment: Order Date: 05/20/24Order Info: 06-1 - BMPOrder Info: [id number] - MGOrder Info: 3051-0 - E2LFknlv Info: 3016-3 - TSHOrder Info: 3024-7 - T4F Performed By: #### L 500.2500, L501.55623, L509.1000, L501.9520, L501.5200, L506.0400 ####[facility] [address] [place], [address] Thyroid Peroxidase ABon 06-2 THYR PEROX AB < 9 Normal 0-34 [facility] Comment on above: Result Comment: Perf ormed at: [facility] [address] [id number] Project Development Manager: Atilio Davis PhD, Phone: [phone] Performed By: #### L 506.0400, L501.9520, L3300.6900, L500.4050 #### [facility] [address] [place], [address] Comprehensive Metabolic Prof ilon 03-21-2024 Albumin [Mass/Vol] 3.9 g/dL Normal 3.2-5.0 [facility] Comment on above: Performed By: #### L 506.0400, L501.9520, L3300.6900, L500.4050 #### [facility] [address] [place], [address] Albumin/Globulin [Mass ratio] 1.0 {ratio} Normal 0.9-2.4 [facility] Comment on above: Performed By: #### L 506.0400, L501.9520, L3300.6900, L500.4050 #### [facility] [address] [place], [address] ALK P 58 U/L Normal 45-117 [facility] Comment on above: Performed By: #### L 506.0400, L501.9520, L3300.6900, L500.4050 #### [facility] [address] [place], [address] ALT [Catalytic activity/Vol] 36 U/L Normal 16-61 [facility] Comment on above: Performed By: #### L 506.0400, L501.9520, L3300.6900, L500.4050 #### [facility] [address] [place], [address] AST [Catalytic activity/Vol] 20 U/L Normal 15-37 [facility] Comment on above: Performed By: #### L 506.0400, L501.9520, L3300.6900, L500.4050 #### [facility] [address] [place], [address] Bilirubin [Mass/Vol] 0.50 mg/dL Normal 0.20-1.00 [facility] Comment on above: Result Comment: For patients on eltrombopag therapy, use of Dimension [place] TBIL is not recommended. Performed By: #### L 506.0400, L501.9520, L3300.6900, L500.4050 #### [facility] [address] [place], [address] BUN/CRE 16.6 RATIO Normal 10-20 [facility] Comment on above: Performed By: #### L 506.0400, L501.9520, L3300.6900, L500.4050 #### [facility] [address] [place], [address] CA,Total 8.9 mg/dL Normal 8.5-10.1 [facility] Comment on above: Performed By: #### L 506.0400, L501.9520, L3300.6900, L500.4050 #### [facility] [address] [place], [address] Chloride [Moles/Vol] 106 mmol/L Normal 98-107 [facility] Comment on above: Performed By: #### L 506.0400, L501.9520, L3300.6900, L500.4050 #### [facility] [address] [place], [address] CO2 [Moles/Vol] 27.0 mmol/L Normal 21.0-32.0 [facility] Comment on above: Performed By: #### L 506.0400, L501.9520, L3300.6900, L500.4050 #### [facility] [address] [place], [address] Creatinine [Mass/Vol] 0.84 mg/dL Normal 0.70-1.30 [facility] Comment on above: Result Comment: The validity of the calculated GFR GFRAA in patients over 70 years has not been determined. Clinical correlation is essential. Performed By: #### L 506.0400, L501.9520, L3300.6900, L500.4050 #### [facility] [address] [place], [address] EST GFR - AA 139 mL/min Normal >60 [facility] Comment on above: Result Comment: Afri can Libyan GFR Calc Performed By: #### L 506.0400, L501.9520, L3300.6900, L500.4050 #### [facility] [address] [place], [address] GAP 7 Normal 5-15 [facility] Comment on above: Performed By: #### L 506.0400, L501.9520, L3300.6900, L500.4050 #### [facility] [address] [place], [address] GFR/1.73 sq M.predicted among non-blacks MDRD (S/P/Bld) [Vol rate/Area] 115 mL/min/{1.73_m2} Normal >60 [facility] Comment on above: Result Comment: Non- GFR Calc Performed By: #### L 506.0400, L501.9520, L3300.6900, L500.4050 #### [facility] [address] [place], [address] Globulin (S) [Mass/Vol] 3.9 g/dL Normal 2.2-4.2 [facility] Comment on above: Performed By: #### L 506.0400, L501.9520, L3300.6900, L500.4050 #### [facility] [address] [place], [address] Glucose [Mass/Vol] 85 mg/dL Normal 74-106 [facility] Comment on above: Performed By: #### L 506.0400, L501.9520, L3300.6900, L500.4050 #### [facility] [address] [place], [address] Potassium [Moles/Vol] 3.8 mmol/L Normal 3.5-5.1 [facility] Comment on above: Performed By: #### L 506.0400, L501.9520, L3300.6900, L500.4050 #### [facility] [address] [place], [address] Sodium [Moles/Vol] 140 mmol/L Normal 136-145 [facility] Comment on above: Performed By: #### L 506.0400, L501.9520, L3300.6900, L500.4050 #### [facility] [address] [place], [address] T PROT 7.8 g/dL Normal 6.4-8.2 [facility] Comment on above: Performed By: #### L 506.0400, L501.9520, L3300.6900, L500.4050 #### [facility] [address] [place], [address] Urea nitrogen [Mass/Vol] 14 mg/dL Normal 7-18 [facility] Comment on above: Performed By: #### L 506.0400, L501.9520, L3300.6900, L500.4050 #### [facility] [address] [place], [address] T4 Free Directon 06-28-2024 T4 FREE DIRECT 0.86 ng/dL Normal 0.76-1.46 [facility] Comment on above: Performed By: #### L 506.0400, L501.9520, L3300.6900, L500.4050 #### [facility] [address] [place], [place], [address] Thyroid Stim Hormone (TSH)on 03-21-2024 TSH 1.57 uIU/mL Normal 0.358-3.74 [facility] Comment on above: Performed By: #### L 506.0400, L501.9520, L3300.6900, L500.4050 #### [facility] [address] [place], [place], [id number] Endocrinology Visit Reporton 12-21-2023 Endocrinology Visit Report [facility] [address] [place], [place] [id number] OFFICE VISIT Date of Service: 12/21/23 MR#: [id number] Acct: [id number] Name: MIRANDA VARGAS Rep #: [id number] : 1995 Provider: Tunde Garnica Age/Sex: 28/M Location: [facility] Status: Signed Intake Vital Signs 09/13/23 06:28 12/21/23 08:21 Height 5 ft 8 in 5 ft 8 in Weight: 166 lb BMI 25.2 BP 132/74 H Blood Pressure Location Lt brachial Position Sitting Pulse 80 Pulse Source Monitor Temp 98.6 F Temp Source Temporal Pulse Oximetry (%) 99 Oxygen Delivery Method room air Intake Visit Reasons: Thyroid Cancer Chief Complaint: Thyroid cancer 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 Accompanied by: Self Is patient in pain?: No Allergies ondansetron [From Zofran] Adverse Reaction (Mild, Verified 12/21/23 08:28) lightheaded, nausea Medications escitalopram oxalate 10 mg tablet 10 mg PO DAILY 04/08/20 [History Confirmed 12/21/23] omeprazole 20 mg capsule,delayed release 40 mg PO DAILY PRN Indigestion 04/14/20 [History Confirmed 12/21/23] cetirizine 10 mg capsule (Zyrtec) 10 mg PO DAILY PRN allergy symptoms 08/09/23 [History Confirmed 12/21/23] cholecalciferol (vitamin D3) 50 mcg (2,000 unit) capsule 50 mcg PO DAILY 08/09/23 [History Confirmed 12/21/23] Lactobacillus acidophilus 250 million cell capsule (Probiotic Acidophilus) 500 mmu cells PO DAILY 09/07/23 [History Confirmed 12/21/23] docusate sodium 100 mg capsule 100 mg PO DAILY 09/07/23 [History Confirmed 12/21/23] PFSH Medical History Anxiety Cancer Complex second degree hemorrhoid GERD (gastroesophageal reflux disease) History of IBS Non-smoker Syncope Thyroid disease Wears glasses Surgical History History of arthroscopic knee surgery History of colonoscopy Hx of hemorrhoidectomy S/P thyroidectomy Family History Mother Hypertension Grandfather Heart disease Hypertension Melanoma Social History Smoking Status: Never smoker HPI HPI Chief Complaint: Thyroid cancer Details: MIRANDA VARGAS, is a 28 M who presents to the office today for evaluation and management of thyroid cancer. He presented to his doctor with heartburn symptoms. During exam a left thyroid nodule was discovered. 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 No vascular or lymphatic invasion. His life is stressful due to getting ready to deliver baby after a miscarriage last year. He reports severe fatigue post-op. That has improved 85%. He alos reports loss of libido. Testosterone levels normal. Pre-op TSH 1.5 Post-op TSH 3.0 Exam Const General: cooperative, healthy appearing, comfortable, no acute distress, well developed and not cushingoid Nutritional Appearance: well nourished Orientation: alert, awake and oriented x3 HENMT Head: normal to inspection Ears: hearing grossly normal bilaterally Nose: external nose normal Mouth: oral mucosae normal Eyes General: appearance normal, both eyes and all related structures Alignment and Position: alignment normal Periorbital: periorbital findings normal Eyelids: eyelids normal Conjunctivae: conjunctivae normal Neck Neck: normal visual inspection Neck mass: No Thyroid: other (surgical wound healed, tender absent left lobe, normal right lobe) Lymphatic: no lymphadenopathy noted Chest Chest palpation inspection: normal inspection of the chest Resp Effort Inspection: normal respiratory effort, able to speak in complete sentences, symmetric chest movement, no audible wheezes and no cough Auscultation: Bilateral: Clear to Auscultation Cardio Rate: regular rate Rhythm: regular rhythm Pulses: posterior tibial pulses present GI Inspection: normal to inspection Palpation: soft Skin General: no rashes or lesions noted Neuro General: patient alert, patient awake and patient oriented x3 Cranial Nerves: CN's II-XI intact bilaterally Cognition: normal cognition Speech: speech normal Gait: normal gait Motor: muscle tone normal throughout Extrem General: no edema Psych Appearance: grossly normal Mental Status: mental status grossly normal Mood: congruent mood Affect: normal affect Speech and Movement: speech and movement normal Attitude: cooperative Thought Process: normal Thought Content: normal Judgment: judgment good Coding Level of Care Code Off vis,new,level 5 Diagnoses Papillary thyroid carcinoma C73 Assessment and Plan Assessment and Plan (1) Papillary thyroid carcinoma: Status: Chronic Comment: This is a 2 (more content not included)... Normal [facility] No Panel InformationOrdered By: Calixto Crump on 11-07-2023 Free Triiodothyronine (T3) pg/dL 2.8 pg/mL 2.18-3.98 [facility] No Panel InformationOrdered By: Kade Colbert on 11-07-2023 Thyroglobulin Antibody < 1.0 IU/mL 0.0-0.9 [facility] Comment on above: Thyroglobulin Antibo dy measured by Latoya CoulterMethodologyIt should be noted that the presence of thyroglobulinantibodies may not be pathogenic nor diagnostic, especiallyat very low levels. The assay project development manager has found thatfour percent of individuals without evidence of thyroiddisease or autoimmunity will have positive TgAb levels upto 4 IU/mL. Thyroglobulin Level 11.5 ng/mL 1.4-29.2 [facility] Comment on above: According to the [facility] [employer],the reference interval for Thyroglobulin (TG) should berelated to euthyroid patients and not for patients whounderwent thyroidectomy. TG reference intervals for thesepatients depend on the residual mass of the thyroid tissueleft after surgery. Establishing a post-operative baselineis recommended. The assay limit of quantitation is 0.1ng/mLThyroglobulin measured by Latoya [place] ImmunometricAssayPerformed at: - [facility] [id number] Director: Atilio Davis PhD, Phone: [phone] Serum or plasma calcium kamron urement (mass/volume)Ordered By: Calixto Crump on 11-07-2023 Calcium [Mass/Vol] 9.7 mg/dL 8.5-10.1 [facility] Serum or plasma thyroid stim ulating hormone (TSH) measurement (units/volume)Ordered By: Calixto Crump on 11-07-2023 TSH Qn 3.00 uIU/mL 0.358-3.74 [facility] Thin prep Papanicolaou smear with manual screeningOrdered By: Calixto Crump on 11-07-2023 Thin prep Papanicolaou smear with manual screening 0.86 ng/dL 0.76-1.46 [facility] Absolute lymphocyte countOrd ered By: Kade Colbert on 04-25-2023 Lymphocytes Auto (Unsp spec) [#/Vol] 1.13 10*3/uL 0.83-4.51 [facility] Basophil percentageOrdered B y: Kade Colbert on 04-25-2023 Basophils/100 WBC (Bld) 0.8 % 0-1 [facility] Bilirubin [Mass/Vol] 0.70 mg/dL 0.20-1.00 [facility] Comment on above: For patients on eltr ombopag therapy, use of Dimension [place] TBIL is not recommended. Chloride [Moles/Vol] 106 mmol/L 98-107 [facility] Eosinophils/100 WBC (Bld) 4.5 % 0-5 [facility] Glucose [Mass/Vol] 102 mg/dL 74-106 [facility] Comment on above: Fasting Glucose resu lt from 100 to 125 mg/dL suggests IMPAIRED HOMEOSTASIS per A.D.A. criteria. Neutrophils (Bld) [#/Vol] 2.0 10*3/uL 2.0-7.7 [facility] Neutrophils/100 WBC (Bld) 54.6 % 47-70 [facility] Potassium [Moles/Vol] 3.8 mmol/L 3.5-5.1 [facility] Protein [Mass/Vol] 8.3 g/dL 6.4-8.2 [facility] Sodium [Moles/Vol] 140 mmol/L 136-145 [facility] Testosterone [Mass/Vol] 268.81 ng/dL [facility] Comment on above: CENTRAL 90% REFERENC E RANGES MALE AGE <50 197.44 - 669.58 ng/dL MALE AGE > or = 50 187.72 - 684.19 ng/dL FEMALE AGE <50 8.38 - 35.01 ng/dL FEMALE AGE > or = 50 <7.00 - 35.92 ng/dL Effective as of 04/19/21 WBC (Bld) [#/Vol] 3.6 10*3/uL 4.4-11.0 [facility] Blood erythrocytes count (nu mber/volume)Ordered By: Kade Colbert on 04-25-2023 RBC (Bld) [#/Vol] 4.66 10*6/uL 4.6-6.2 [facility] Blood hemoglobin measurement (mass/volume)Ordered By: Kade Colbert on 04-25-2023 Hemoglobin (Bld) [Mass/Vol] 15.1 g/dL 13.0-16.5 [facility] Blood lymphocytes/100 leukoc ytesOrdered By: Kade Colbert on 04-25-2023 Lymphocytes/100 WBC (Bld) 31.7 % 19-41 [facility] Blood monocytes/100 leukocyt esOrdered By: Kade Colbert on 04-25-2023 Monocytes/100 WBC (Bld) 8.4 % 0-10 [facility] Blood platelet mean volumeOr dered By: Kade Colbert on 04-25-2023 Platelet mean volume (Bld) [Entitic vol] 9.8 fL 6.2-12.0 [facility] Determination of erythrocyte mean corpuscular volume (MCV)Ordered By: Kade Colbert on 04-25-2023 MCV (RBC) [Entitic vol] 92.3 fL 80-94 [facility] Erythrocyte sedimentation ra teOrdered By: Kade Colbert on 04-25-2023 ESR (Bld) [Velocity] mm/h 0-20 [facility] Hematocrit Auto (Bld) [Volum e fraction]Ordered By: Kade Colbert on 04-25-2023 Hematocrit (Bld) [Volume fraction] 43.0 % 40-54 [facility] Iron measurement (mass/mass) Ordered By: Kade Colbert on 04-25-2023 Iron (Unsp spec) [Mass/Mass] 111 ug/dL 65-175 [facility] Laboratory - Chemistry and C hemistry - challengeOrdered By: Kade Colbert on 04-25-2023 ALP [Catalytic activity/Vol] 46 U/L 45-117 [facility] ALT [Catalytic activity/Vol] 60 U/L 16-61 [facility] CO2 [Moles/Vol] 31.0 mmol/L 21.0-32.0 [facility] Cobalamin (Vitamin B12) [Mass/Vol] 478 pg/mL 211-911 [facility] Globulin (S) [Mass/Vol] 4.0 g/dL 2.2-4.2 [facility] Urea nitrogen/Creatinine [Mass ratio] 16.5 mg/mg 10-20 [facility] - Hematology and Cell countsOrdered By: Kade Colbert on 04-25-2023 Erythrocyte distribution width (RBC) [Entitic vol] 39.1 fL 35.1-43.9 [facility] Erythrocyte distribution width (RBC) [Ratio] 11.5 % 11.6-14.6 [facility] Immature granulocytes/100 WBC (Bld) 0.000 % 0.0-0.9 [facility] Comment on above: IG% - Immature Granu locytes (promyelocytes, myelocytes and metamyelocytes) > 1% indicates that a LEFT SHIFT is Present. MCH (RBC) [Entitic mass] 32.4 pg 27.0-32.0 [facility] Nucleated RBC/100 WBC (Bld) [Ratio] 0 % 0-5 [facility] MCHC Auto (RBC) [Mass/Vol]Or dered By: Kade Colbert on 04-25-2023 MCHC (RBC) [Mass/Vol] 35.1 g/dL 32-36 [facility] No Panel InformationOrdered By: Kade Colbert on 04-25-2023 Estimated GFR (MDRD) Amer 139 mL/min >60 [facility] Comment on above: GFR Calc Estimated GFR (MDRD) Non-Af Amer 115 mL/min >60 [facility] Comment on above: Non- GFR Calc Thyroid Stimulating Hormone (TSH) 1.59 uIU/mL 0.358-3.74 [facility] Vitamin D 25-Hydroxy 30.6 ng/mL [facility] Comment on above: Vitamin D 25(OH) Sta tus Range Deficiency <20 ng/mL (50nmol/L) Insufficiency 20 - 30 ng/mL (50 - 75 nmol/L) Sufficiency 30 - 100 ng/mL (75 - 250 nmol/L) Toxicity >100 ng/mL (>250 nmol/L) Platelets bldOrdered By: Osmar Colbert on 04-25-2023 Platelets (Bld) [#/Vol] 189 10*3/uL 150-450 [facility] Serum or plasma C reactive p rotein measurement (mass/volume)Ordered By: Kade Colbert on 04-25-2023 CRP [Mass/Vol] mg/L 0.0-3.0 [facility] Comment on above: C-Reactive Protein ( CRP) provides useful information for thediagnosis, therapy and monitoring of inflammatory processesand associated diseases. For the evaluation of Relative Riskfor Cardiovascular Disease, a High Sensitivity CRP (HSCRP)should be ordered. Serum or plasma albumin kamron urement (mass/volume)Ordered By: Kade Colbert on 04-25-2023 Albumin [Mass/Vol] 4.3 g/dL 3.2-5.0 [facility] Serum or plasma albumin/glob ulin mass ratioOrdered By: Kade Colbert on 04-25-2023 Albumin/Globulin [Mass ratio] 1.1 {ratio} 0.9-2.4 [facility] Serum or plasma calcium kamron urement (mass/volume)Ordered By: Kade Colbert on 04-25-2023 Calcium [Mass/Vol] 9.5 mg/dL 8.5-10.1 [facility] Serum or plasma cortisol aelxis surement (mass/volume)Ordered By: Kade Colbert on 04-25-2023 Cortisol [Mass/Vol] 13.90 ug/dL 3.44-22.45 [facility] Comment on above: Adult (AM) 5.27 - 22 .45 ug/dL Adult (PM) 3.44 - 16.76 ug/dLPlease note revised CORTISOL reference range effective 2019. Serum or plasma creatinine m easurement (mass/volume)Ordered By: Kade Colbert on 04-25-2023 Creatinine [Mass/Vol] 0.85 mg/dL 0.70-1.30 [facility] Comment on above: The validity of the calculated GFR & GFRAA in patients over 70 years has not been determined. Clinical correlation is essential. Serum or plasma urea nitroge n measurement (mass/volume)Ordered By: Kade Colbert on 04-25-2023 Urea nitrogen [Mass/Vol] 14 mg/dL 7-18 [facility] Thin prep Papanicolaou smear with manual screeningOrdered By: Kade Colbert on 04-25-2023 Thin prep Papanicolaou smear with manual screening 23 U/L 15-37 [facility] Thin prep Papanicolaou smear with manual screening 3 5-15 [facility] CORONAVIRUS PCR [CCL]on 08-24 REF LAB REPORT Positive Normal [facility] Comment on above: Performed By: #### [id number] #### [facility],[address] [place] [address] SEND TO IC? YES Normal [facility] Comment on above: Performed By: #### [id number] #### [facility],[address] [place] [address] COVID 19 Result HANDKERCHIEF SAMPLE CLERK Positive Abnormal [facility] Comment on above: Result Comment: Posi tive for COVID19 (SARS CoV2) by PCR.(*) This test was developed and its performance characteristics determined by [facility] [place]. This test has been authorized by FDA under an Emergency Use Authorization (EUA). This test has been validated in accordance with the FDA's Guidance Document Policy for Diagnostics Testing in Laboratories Certified to Perform High Complexity Testing under CLIA prior to Emergency use Authorization for Coronavirus Disease 2019 during the Public Health Emergency issued on November 22, 2019. [facility] [address] [place] [address] Lincoln Mckinnon III, M.D. [id number] Performed By: #### 2 [id number] #### [address] [address] COVID 19 Source HANDKERCHIEF SAMPLE CLERK Nasopharyngeal Swab Normal [facility] Comment on above: Result Comment: Dick ected on 09/05 AT 0555: Previously reported as U Performed By: #### 2 [id number] #### [facility],[address] [place] [id number] Coronavirus 2019on 0 COVID 19 Result HANDKERCHIEF SAMPLE CLERK Abnormal Negative for COVID19 (SARS CoV2) by PCR. [facility] Comment on above: Result Comment: Posi tive for This test was developed and its performance characteristics determined by [facility]'s [facility] [place]. This test has been authorized by FDA under an Emergency Use Authorization (EUA). This test has been validated in accordance with the FDA's Guidance Document Policy for Diagnostics Testing in Laboratories Certified to Perform High Complexity Testing under CLIA prior to Emergency use Authorization for Coronavirus Disease 2019 during the Public Health Emergency issued on November 22, 2019. COVID19 (SARS This test was developed and its performance characteristics determined by [facility] [place]. This test has been authorized by FDA under an Emergency Use Authorization (EUA). This test has been validated in accordance with the FDA's Guidance Document Policy for Diagnostics Testing in Laboratories Certified to Perform High Complexity Testing under CLIA prior to Emergency use Authorization for Coronavirus Disease 2019 during the Public Health Emergency issued on November 22, 2019. CoV2) by This test was developed and its performance characteristics determined by [facility] [place]. This test has been authorized by FDA under an Emergency Use Authorization (EUA). This test has been validated in accordance with the FDA's Guidance Document Policy for Diagnostics Testing in Laboratories Certified to Perform High Complexity Testing under CLIA prior to Emergency use Authorization for Coronavirus Disease 2019 during the Public Health Emergency issued on November 22, 2019. PCR.(*) This test was developed and its performance characteristics determined by [facility] [place]. This test has been authorized by FDA under an Emergency Use Authorization (EUA). This test has been validated in accordance with the FDA's Guidance Document Policy for Diagnostics Testing in Laboratories Certified to Perform High Complexity Testing under CLIA prior to Emergency use Authorization for Coronavirus Disease 2019 during the Public Health Emergency issued on November 22, 2019. COVID 19 Source HANDKERCHIEF SAMPLE CLERK Normal [facility] Comment on above: Result Comment: Naso pharyngeal Corrected on 09/05 AT 0555: Previously reported as U Swab Corrected on 09/05 AT 0555: Previously reported as U Final Surgical Pathology Rep [facility] 02-12-2018 Final Surgical Pathology Report . Pathology ReportsAccession: Collected Date/Time: Received Date/Time: Pathologist:[id number] 02/08/2018 14:14 EDT 02/11/2018 14:14 EDT MD VINNY CARY Final Surgical Pathology ReportDIAGNOSIS:TERMINAL ILEUM, BIOPSY: - SMALL REACTIVE SUBMUCOSAL LYMPHOID AGGREGATE AND NO HISTOPATHOLOGIC CHANGES. - NO EVIDENCE OF CROHN'S DISEASE.CLINICAL INFORMATION:CROHN'SSPECIMEN: A COLON, BX - TERMINAL ILEUM - R/O CROHN'SGROSS DESCRIPTION:Received in formalin labeled terminal ileum are 2 zamora glistening soft tissues averaging 0.3 cm. TS -1Dictated by CHIQUITA AGUSTIN ([facility])MICROSCOPIC DESCRIPTION:Slides reviewed.Electronically Signed byPathology Report verified by [facility] Center[facility]ronically signed by VINNY CARY MDSign out Date: 02/12/2018 14:02Performing Lab: [facility], [address] [place] [address] ([place]) Comment on above: Performed By: #### S PFR ####[place] [address] Vital Signs Date Time Vital Sign Value Performing Clinician Faci lity 11-03-2024 09:54-0500 Body temperature 96.8 [degF] Dr. Venkatesh Colbert MD Work Phone: [facility] 11-03-2024 09:54-0500 Diastolic blood pressure 73 mm[Hg] Dr. Venkatesh Colbert MD Work Phone: [facility] 11-03-2024 09:54-0500 Heart rate 104 /min Dr. Venkatesh Colbert MD Work Phone: [facility] 11-03-2024 09:54-0500 Respiratory rate 17 /min Dr. Venkatesh Colbert MD Work Phone: [facility] 11-03-2024 09:54-0500 SaO2% (BldA) [Mass fraction] 98 % Dr. Venkatesh Colbert MD Work Phone: [facility] 11-03-2024 09:54-0500 Systolic blood pressure 124 mm[Hg] Dr. Venkatesh Colbert MD Work Phone: [phone] [place] [address] 09-13-2023 15:39-0500 Body temperature 98.4 [degF] Dr. Kade Colbert Work Phone: [facility] 09-13-2023 15:39-0500 Diastolic blood pressure 69 mm[Hg] Dr. Kade Colbert Work Phone: [facility] 09-13-2023 15:39-0500 Heart rate 100 /min Dr. Kade Colbert Work Phone: [facility] 09-13-2023 15:39-0500 Respiratory rate 16 /min Dr. Kade Colbert Work Phone: [facility] 09-13-2023 15:39-0500 SaO2% (BldA) [Mass fraction] 95 % Dr. Kade Colbert Work Phone: [facility] 09-13-2023 15:39-0500 Systolic blood pressure 112 mm[Hg] Dr. Kade Colbert Work Phone: [facility] 09-13-2023 14:15-0500 Inhaled oxygen flow rate 2 L/min Dr. Kade Colbert Work Phone: [facility] 09-13-2023 06:28-0500 Body height 172.[address] Kade Colbert Work Phone: [facility] 09-13-2023 06:28-0500 Body mass index (BMI) [Ratio] 25.5 kg/m2 Dr. Kade Colbert Work Phone: [facility] 09-13-2023 06:28-0500 Body weight 76.[address] Kade Colbert Work Phone: [facility] 09-04-2023 07:54-0500 Body temperature 97 [degF] Dr. Kade Colbert Work Phone: [facility] 09-04-2023 07:54-0500 Diastolic blood pressure 70 mm[Hg] Dr. Kade Colbert Work Phone: [facility] 09-04-2023 07:54-0500 Heart rate 85 /min Dr. Kade Colbert Work Phone: [facility] 09-04-2023 07:54-0500 Respiratory rate 17 /min Dr. Kade Colbert Work Phone: [facility] 09-04-2023 07:54-0500 SaO2% (BldA) [Mass fraction] 99 % Dr. Kade Colbert Work Phone: [facility] 09-04-2023 07:54-0500 Systolic blood pressure 117 mm[Hg] Dr. Kade Colbert Work Phone: [facility] 08-09-2023 14:40-0500 Body temperature 97.7 [degF] Dr. Kade Colbert Work Phone: [facility] 08-09-2023 14:40-0500 Diastolic blood pressure 76 mm[Hg] Dr. Kade Colbert Work Phone: [facility] 08-09-2023 14:40-0500 Heart rate 87 /min Dr. Kade Colbert Work Phone: [facility] 08-09-2023 14:40-0500 Respiratory rate 17 /min Dr. Kade Colbert Work Phone: [facility] 08-09-2023 14:40-0500 SaO2% (BldA) [Mass fraction] 100 % Dr. Kade Colbert Work Phone: [facility] 08-09-2023 14:40-0500 Systolic blood pressure 120 mm[Hg] Dr. Kade Colbert Work Phone: [facility] Encounters Encounter Date Encounter Type Care Provider Facility Start: 11-29-2024 End: 11-29-[address] Venkatesh Colbert MD Work Phone: [facility] Work Phone: Start: 11-29-2024 End: 11-29-[address] Iker Guzmán MD -Laboratory Work Phone: Start: 11-29-2024 End: 11-29-2024 ambulatory [facility] Facility:[facility] Start: 11-03-2024 End: 11-03-[address] Calixto Crump MD -[facility] Work Phone: Start: 11-03-2024 End: 11-03-2024 ambulatory Calixto Crump Facility:[facility] Start: 10-27-2024 End: 10-27-[address] Calixto Crump MD -[facility] Work Phone: Start: 10-27-2024 End: 10-27-2024 ambulatory Calixto Crump Facility:[facility] Start: 08-07-2024 End: 08-07-2024 ambulatory [facility] Facility:[facility] Start: 05-20-2024 End: 05-20-2024 ambulatory Venkatesh Colbert Facility:[facility] Start: 03-21-2024 End: 03-21-2024 ambulatory [facility] Facility:[facility] Start: 12-21-2023 End: 12-21-2023 ambulatory [facility] Facility:[facility] Start: 11-07-2023 End: 11-07-[address] Kade Colbert Work Phone: [facility] Work Phone: Start: 11-07-2023 End: 11-07-[address] Kade Colbert Work Phone: [facility] Work Phone: Start: 10-03-2023 End: 10-03-[address] Kade Colbert Work Phone: [facility] Work Phone: Start: 09-13-2023 Non-patient / Non-visit Dr. Kade Colbert Work Phone: [facility] Start: 09-13-2023 End: 09-13-2023 Admission to same day surgery center Dr. Kade Colbert Work Phone: [facility] Start: 09-13-2023 End: 09-13-[address] Kade Colbert Work Phone: [facility] Work Phone: Start: 09-04-2023 End: 09-04-[address] Kade Colbert Work Phone: [facility] Work Phone: Start: 08-14-2023 End: 08-14-[address] Kade Colbert Work Phone: [facility] Work Phone: Start: 08-14-2023 End: 08-14-[address] Kade Colbert Work Phone: [facility] Work Phone: Start: 08-09-2023 End: 08-09-[address] Kade Colbert Work Phone: [facility]-Laboratory, Specimen Work Phone: Start: 08-09-2023 End: 08-09-[address] Kade Colbert Work Phone: [facility] Work Phone: Start: 07-18-2023 End: 07-18-2023 ambulatory [facility] Work Phone: Start: 07-18-2023 End: 07-18-2023 Patient encounter procedure [facility]-Ultrasound, [facility] Work Phone: Start: 04-25-2023 End: 04-25-2023 ambulatory [facility] Work Phone: Start: 04-25-2023 End: 04-25-2023 Patient encounter procedure [facility]-Laboratory, [place] Work Phone: Start: 09-20-2022 End: 09-20-2022 ambulatory [facility] Work Phone: Start: 09-20-2022 End: 09-20-2022 Patient encounter procedure [facility]-Radiology, [place] Start: 09-03-2020 End: 09-03-2020 Patient encounter procedure VENKATESH COLBERT [facility] Start: 02-08-2018 End: 02-13-2018 [facility] Procedures Date Procedure Procedure Detail Performing Clinician Start: 10-27-2024 US scan of thyroid Dr. Venkatesh Colbert MD Work Phone: Start: 09-13-[address] Pierre Colbert Work Phone: Start: 08-14-2023 Ultrasonography of t hyroid and parathyroid Dr. Kade Colbert Work Phone: Start: 07-18-2023 Radiography of esophagus Start: 07-18-2023 US scan of thyroid Start: 09-20-2022 Radiography of nasal sinuses History of thyroidectomy S/P thyroidectom y Dr. Kade Colbert Work Phone: Comment on above: Patient has recovere d remarkably well following left thyroid lobectomy with isthmusectomy on 09/13/2023. He has no lingering concerns of pain or bloody sputum. He is well-healing on exam. I have shared with him some wound care instructions to include application of either vitamin E oil or cocoa butter twice daily to his incision. Will plan to recheck his thyroid functions postoperatively at 5 weeks and determine if he requires supplemental thyroid hormone. Given his thyroid cancer diagnosis we will now make a referral to endocrinologyOverall patient is doing well following left thyroid lobectomy, but he does have some low energy complaints. He completed thyroid function testing prior to today's visit. Those results are pending. We will see if he requires any supplementation. I have reviewed the proper administration of thyroid hormone supplementation in case he requires it. Plan of Treatment Date Care Activity Detail Author Start: 10-03-2023 Patient referral [facility] Work Phone: Start: 09-13-2023 Patient discharge [facility] Start: 09-13-2023 Anes esoph thyrd lar ynx trach & lymph neck 1yr ANESTH NECK ORGAN 1YR/> [facility] Start: 09-13-2023 Prtl thyroid lobecto my uni w/wo isthmusectomy PARTIAL THYROID EXCISION [facility] Start: 08-13-2023 Patient referral [facility] Work Phone: Patient referral [facility] Work Phone: Thyroid gland [facility] Payers Date Payer Category Payer Self-pay [id number] 2023 Unknown [id number] 2017 Unknown [id number] 1995 Unknown [id number] 2.16.84 [id number] Unknown Unknown [facility] [id number] Unknown BHAVNA [id number] Unknown [id number] 2.16.8 [id number] Unknown [id number] 2.16.8 [id number] Unknown [id number] 2.16.8 [id number] Unknown [id number] 2.16.8 [id number] Unknown [id number] 2.16.8 [id number] Unknown [id number] 2.16.8 [id number] Unknown 1951 2.16.8 [id number] Social History Date Type Detail Facility Start: 04-14-2020 End: 09-07-2023 Tobacco smoking status NHIS Unknown if ever smoked [facility] Start: 04-14-2020 Non-smoker [facility] Start: 1995 Sex Assigned At Male [facility] Start: 12-21-2023 [facility] Start: 12-09-2024 Sex Male (finding) [facility] Medical Equipment Procedure Code Equipment Code Equipment Original Text Equipment Identifier Dates Thyroidectomy Plant polysaccha ride haemostatic agent, bioabsorbable ()[id number] FDA Start: 09-13-2023 Thyroidectomy Ligation clip, metallic ( )[id number] FDA Start: 09-13-2023 Goals Date Patient Goal Desired Activity /State Mental Status Date Assessment Result Facility 09-13-2023 Cognitive function Voice/Name [facility] Work Phone: Evaluation note 11-03-2024 Note Date & Type Note Facility 11-03-2024 Evaluation note Diagnosis Onset Date Resolution Papillary thyroid carcinoma chronic November 03, 2 025 9:44am [facility] Work Phone: History and physical note 09-13-2023 Note Date & Type Note Facility 09-13-2023 History and physi yancy note Note Date/Time September 13, 2023 7:35am [facility] Medical Records Department [address] [place] [address] History & Physical Exam 09/13/23 0733 MR#: [id number] Acct: [id number] Name: MIRANDA VARGAS Rep #:[id number] : 1995 28 From: Calixto Chatman PCP: Dr. Kade Colbert MD Status: [facility] Location: [place] [address] History and Physical Date of Admission: 09/13/23 OFFICE VISIT Date of Service: 08/09/23 MR#: [id number] Acct: [id number] Name: MIRANDA VARGAS Rep #: [id number] : 1995 Provider: Dr. Calixto Crump MD Age/Sex: 28/M Location: [facility] Status: Signed Intake Vital Signs 08/09/2314:40 BP 120/76 Blood Pressure Location Rt brachial Position Sitting Respiration 17 Pulse 87 Pulse Source Monitor Temp 97.7 F L Temp Source Temporal Pulse Oximetry (%) 100 Oxygen Delivery Method room air Intake Visit Reasons: THYROID NODULE Chief Complaint: thyriod nodule Is patient in pain?: No Allergies ondansetron [From Zofran] Adverse Reaction (Mild, Verified 08/09/23 14:41) lightheaded, nausea Medications escitalopram oxalate 10 mg tablet 10 mg PO DAILY 04/08/20 [History Confirmed 08/09/23] omeprazole 20 mg capsule,delayed release 20 mg PO DAILY PRN Indigestion 04/14/20[History Confirmed 08/09/23] docusate sodium 100 mg capsule 100 mg PO BID #20 caps 04/21/20 [Rx Confirmed 08/09/23] cetirizine 10 mg capsule (Zyrtec) 10 mg PO DAILY PRN 08/09/23 [History Confirmed 08/09/23] cholecalciferol (vitamin D3) 50 mcg (2,000 unit) capsule 50 mcg PO DAILY 08/09/23 [History Confirmed 08/09/23] [facility] Medical History (Updated 08/09/23 @ 16:[address] Calixto Crump MD) Anxiety GERD (gastroesophageal reflux disease) Hemorrhoid Surgical History History of arthroscopic knee surgery History of colonoscopy Family History Mother HypertensionGrandfather Heart disease Hypertension Melanoma Social History Smoking Status: Never smoker HPI HPI HPI: Patient is a 28-year-old male who presents for newly diagnosed thyroid nodule. They are referred for surgical consultation from Dr. Colbert. This was discovered during a work-up for some chest tightness and hoarseness which patient complained of approximately 2 months ago and he was noted to have thyroid nodularity as well as thyromegaly on exam. He was prescribed omeprazoleon the offhand chance that he was dealing with some laryngeal irritation from gastric acid and notes that the proton pump inhibitor did help with his symptoms. In fact, he suggest that the symptoms got better to the point that hedid not notice them until he had some recent travel and since that travel thingshave become worse again. He also notes that his postnasal drip and allergies are contributors with the symptoms. They do not experience difficulty with swallowing since starting the omeprazole. They do not complain of a new cough. They do appreciate new voice changes as above. They do not have a history of snoring/sleep apnea. Additionally, their weight has been stable and they do not have a history of weight gain/loss. There is no history of recent fatigue. They do not have a history of heat or cold intolerance. Other symptoms include: Pertinent negatives of no palpitations, no sweating, no unusual swelling, and no concentration difficulty. They do not have a family history of thyroid disorders or endocrinopathies. There is no history of prior radiation exposure. Previous work-up as included thyroid ultrasound. This study was performed on 07/18/2023 and showed a right thyroid lobe measuring 5.4 x 1.8 x 1.7 cm. Withinthis lobe radiology identified no demonstrated solid, cystic, or complex lesions. The left thyroid lobe measured 5.9 x 2.6 x 2.4 cm. Within this lobe radiology identified a nodule measuring 2.7 x 2.5 x 2.2 cm with a solid composition and hypoechoic echogenicity appearance. An FNA has not been performed. Other tests include: TSH: 1.59 (04/25/2023) ROS General General: No weight change, appetite, fatigue, colon cancer, breast cancer or weakness HEENT HEENT: No difficulty swallowing, eye injury, eye surgery, swollen glands or hoarseness Endo Endocrine: No thyroid disease, diabetes mellitus, thyroid cancer, Hair loss, heat intolerance or cold intolerance Skin Skin: No rash or changing moles Musc Musculoskeletal: No back problems, arthritis, rheumatoid arthritis, gout or joint pain Cardio Cardiovascular: No murmur, pacemaker, heart disease, atrial fibrillation, high blood pressure, heart attack, heart stent, palpitations, shortness of breat withexertion or chest pain Psych Psychiatric: Yes anxiety; No depression or hearing voices Resp Respiratory: No shortness of breath, No sleep apnea, No cough, No COPD, No asthma, No emphysema and No wheezing Gastro Gastrointestinal: No abdominal pain, No nausea or vomiting, No diarrhea, Yes constipation, No blood in stool, No acid reflux, Yes hemorrhoids, No ulcers, No gallbladder problem and No black,tarry stools Ganesh Hematologic: No blood thinners, No blood disorders, No bleeding, No anemia and No blood clots Neuro Neurologic: No system reviewed and no additional complaints, except as documented, No as per HPI, No abnormal gait, No abnormal hearing, No abnormal movements, No abnormal speech, No behavioral changes, No burning sensations, No confusion, No convulsions, No disequilibrium, No dizziness, No localized weakness, No frequent falls, No headache(s), No lack of coordination, No loss ofvision, No memory loss, No numbness, No other visual disturbances, No radicular pain, No restless legs, No sensory deficit, No syncope, No tingling, No tremor(s), No weakness and No other Exam Const General: cooperative, no acute distress and anxious Orientation: alert, awake and oriented x3 Neck Lymphatic: no lymphadenopathy noted Other: Patient with thyromegaly and asymmetric gland with left significantly greater than right. Patient describes no tenderness with palpation. No cervical lymphadenopathy appreciated. Ultrasound exam was made of patient's neck and identified is suspicious left thyroid nodule that demonstrated a solid composition, hypoechoic echotexture, and evidence of several punctate calcifications. Office Procedures Fine Needle Aspiration Provider Documentation Details: Indication: Left thyroid nodule After obtaining patient consent and conducting a timeout amongst those present, the procedure was commenced by locating the suspicious nodule in the inferior pole of the left thyroid lobe using ultrasound. Superficially, the skin was cleaned with an alcohol swab and a wheal of local anesthetic was created after instilling 4 ml 1% lidocaine. Then, under ultrasound guidance, multiple passes were made into the thyroid nodule using a 25-gauge needle. Once an adequate specimen was detected within the hub of the needle and bottom of the syringe, this was handed off the field. A second pass was made in a similar manner using a 22-gauge needle. This specimen, also, was passed off the field for cytopathologic evaluation. External pressure was applied to the neck to assist with hemostasis. A quick examination was made with ultrasound to exclude any evidence of hematoma formation. Then the surface of the neck was cleaned, dried, and a bandage was applied. Patient was gradually returned to the sittingposition and after short period of monitoring was dismissed. Wound care instructions and expectations regarding pathologic processing were discussed prior to dismissal. Complications: None Estimated blood loss: 1 ml Alert Dough Puncher Alert Billing: Yes [id number] Thyroid Procedure Time Out Time Out Informed consent given: Yes Consent signed: Yes Time out checklist: patient, procedure, site marked/identified, positioning of patient, supplies available, allergies confirmed and team agrees on procedure Time out staff in room: Yes Time out verified: Yes Time out date: 08/09/23 Time out time: 15:00 Assessment and Plan Assessment and Plan (1) Thyroid nodule: Status: Acute Comment: This is a 28-year-old male, euthyroid from an endocrine standpoint, who presentsfor a newly diagnosed left thyroid nodule that arose out of a work-up for complaints of chest tightness and hoarseness. It is difficult to attribute his hoarseness directly to his thyroid nodule as he reports some improvement simply with taking omeprazole empirically. Thyroid ultrasound obtained 07/18/2023 was read by radiology as consistent with a TI-RADS 4 nodule, however,in the body of the impression they did note that the nodule was partially calcified but do not appear to account for this finding in their final TI-RADS rating. I have shared with Mr. Vargas that I would make less of his irregular contour and reintroduced the calcification observation?thereby raising his TI-RADS rating to a 5 (7 total points given 3 4 presence of punctateechogenic foci). I also shared with him the notes mildly concerned for possibleevidence of extrathyroidal extension based on his ultrasound that was done formally at the hospital, but in my own exam did not find evidence of this feature. At either TI-RADS rating given the dimension of his thyroid nodule exceeded 1.5 cm the ACR recommendation would be to proceed with biopsy and this recommendation was extended the patient. He was receptive of this recommendation and the biopsy procedure was undertaken in uncomplicated fashion during his consultation visit. See appended documentation for details. He has a number of questions related to the possibility of this representing cancer Nnamdi tried to remain at a surface level with my comments, but did inform him that surgery would be recommended. Plan: ? Patient asked to keep his head elevated and remove bandage on returning home ? We will notify patient on cytopathology results once official I have examined the patient and the H&P has been reviewed. There are no clinicalchanges since date of exam. Procedure and post procedure expectations were reviewed with the patient and his . I did discuss with him specifically that there may be an indication to take some of his strap muscle and lorne of the left thyroid lobe if there appears to be gross evidence of extrathyroidal extension. He shares that he is simply ready to have it all gone and accepts this information. We are planning for outpatient disposition following surgery today. Will now proceed to the operating room for left thyroid lobectomy with isthmusectomy using intraoperative nerve monitoring, indication:papillary thyroid cancer. 09/13/23 0735 <Electronically signed by Calixto Crump MD> Cosigner Signature (if applicable): CC: Dr. Kade Colbert MD; Dr. Calixto Crump MD~ Signed [facility] Work Phone: Evaluation note Note Date & Type Note Facility Evaluation note No assessment information availa ble [facility] Work Phone: Evaluation note Note Date & Type Note Facility Evaluation note Diagnosis Onset Date Thyroid nodule acute [facility] Work Phone: Evaluation note Note Date & Type Note Facility Evaluation note Diagnosis Onset Date Thyroid nodule acute Papillary thyroid carcinoma acute Thyroid nodule acute [facility] Work Phone: Evaluation note Note Date & Type Note Facility Evaluation note Diagnosis Onset Date Thyroid nodule resolved Papillary thyroid carcinoma acute Thyroid nodule resolved Papillary thyroid carcinoma acute S/P thyroidectomy acute Papillary thyroid carcinoma acute S/P thyroidectomy acute [facility] Work Phone: Reason for referral (narrative) Note Date & Type Note Facility Reason for referral (narrative) No reason for referral information available [facility] Work Phone: Summary Purpose Family History Relationship Condition Age at Onset Recorded Date/T adam mother Hypertension Unknown grandfather Cardiac disease Unknown Hypertension Unknown Malignant melanoma Unknown Advance Directives Advance Directive Response Recorded Date/ Time Living Will No April 14, 2020 9:10am Power of [employer] No April 14 0 9:10am Advance Directive Response Recorded Date/ Time Living Will No April 14, 2020 10:10am Power of [employer] Application Developer No April 14 0 10:10am Advance Directive Response Recorded Date/ Time Living Will No September 07 023 8:12am Power of [employer] Application Developer No September 07, 2023 8:12am Advance Directive Response Recorded Date/ Time Living Will No September 07 023 9:12am Power of [employer] Application Developer No September 07, 2023 9:12am Chief Complaint and Reason for Visit Chief Complaint Nontoxic single thyr oid nodule Chief Complaint Nontoxic single thyr oid nodule THYROID NODULE L THYROID NODULE CHECK LYMPH NODES/SURROUNDING TISSUE OF THYROID Reason for Visit Thyroid nodule Chief Complaint Nontoxic single thyr oid nodule THYROID NODULE L THYROID NODULE CHECK LYMPH NODES/SURROUNDING TISSUE OF THYROID DISCUSS SURGERY Left Thyroidectomy w/isthmusectomy Left Thyroidectomy w/isthmusectomy Reason for Visit Thyroid nodule Papillary thyroid carcinoma Thyroid nodule Chief Complaint Nontoxic single thyr oid nodule THYROID NODULE L THYROID NODULE CHECK LYMPH NODES/SURROUNDING TISSUE OF THYROID DISCUSS SURGERY Left Thyroidectomy w/isthmusectomy Left Thyroidectomy w/isthmusectomy Thyroidectomy 09/13 Thyroidectomy 09/13 Reason for Visit Thyroid nodule Papillary thyroid carcinoma Thyroid nodule Papillary thyroid carcinoma S/P thyroidectomy Papillary thyroid carcinoma S/P thyroidectomy Chief Complaint Admit Date 1 YR F/U THYROIDECTOMY October 27 11:51am THYROID U/S RESULTS November 03, 2024 9:44am INT LAB ORDERS November 29, 2024 8:41 am Reason for Visit Admit Date Papillary thyroid carcinoma October 9:44am Additional Source Comments (unrecognized sect ion and content) No Status Records FoundNo Status Records FoundNo Status Records FoundNo Status Records Found INFORMATION SOURCE (unrecogn ized section and content) DATE CREATED AUTHOR 03/13/2018 [facility] ([place]) DATE CREATED AUTHOR AUTHOR'S ORGANIZ ATION 09/06/2020 [facility] DATE CREATED AUTHOR AUTHOR'S ORGANIZ ATION 09/11/2020 [facility] DATE CREATED AUTHOR AUTHOR'S ORGANIZ ATION 12/12/2024 [facility] Goals (unrecognized section and content) Goals may be documented in a n alternate sectionGoals may be documented in an alternate sectionGoals may be documented in an alternate sectionGoals may be documented in an alternate sectionGoals may be documented in an alternate section Care Teams (unrecognized sec tion and content) Team Status: Active Member Role Status Dates Dr. Kade Colbert MD Family Provider Active Dr. Kade Colbert MD Primary Care Provider Activ e Team Status: Inactive Member Role Status Dates Dr. Kade Colbert MD Primary Care Provider, Attending Provider, Referring Provider Active Team Status: Inactive Member Role Status Dates Dr. Kade Colbert MD Primary Care Provider, Refe rring Provider Active Dr. Calixto Crump MD Attending Provider Active Team Status: Inactive Member Role Status Dates Dr. Kade Colbert MD Primary Care Provider Activ e Dr. Calixto Crump MD Attending Provider Active Team Status: Inactive Member Role Status Dates Dr. Kade Colbert MD Primary Care Provider Activ e Dr. Calixto Crump MD Attending Provider, [facility] [place] [facility] Team Status: Active Member Role Status Dates Dr. Kade Colbert MD Primary Care Provider, Refe rring Provider Active Dr. Calixto Crump MD Attending Provider, Other Provi malinda Active Team Status: Active Member Role Status Dates Dr. Venkatesh Colbert MD Primary Care Provider Acti ve Team Status: Inactive Member Role Status Dates Dr. Venkatesh Colbert MD Primary Care Provider Acti ve Start: October 27, 2024 End: October 27, 2024 Dr. Calixto Crump MD Attending Provider Active Start: October 27, 2024 End: October 27, 2024 Dr. Calixto Crump MD Referring Provider Active Start: October 27, 2024 End: October 27, 2024 Team Status: Inactive Member Role Status Dates Dr. Venkatesh Colbert MD Primary Care Provider Acti ve Start: November 03, 2024 End: November 03, 2024 Dr. Venkatesh Colbert MD Referring Provider Active Start: November 03, 2024 End: November 03, 2024 Dr. Calixto Crump MD Attending Provider Active Start: November 03, 2024 End: November 03, 2024 Team Status: Inactive Member Role Status Dates Dr. Venkatesh Colbert MD Primary Care Provider Acti ve Start: November 29, 2024 End: November 29, 2024 Dr. Iker Guzmán MD Attending Provider Active Sta rt: November 29, 2024 End: November 29, 2024 Dr. Iker Guzmán MD Referring Provider Active Sta rt: November 29, 2024 End: November 29, 2024 FOR RECORDS PERTAINING TO PATIENTS WHO ARE [...] BE BASED ON THE PRIMARY CLINICAL RECORDS. [employer] provides no warranty or guarantee of the accuracy or completeness of information in this document.
--- OUTSIDE RECORDS SUMMARY | 2025-07-13 07:24 | XMS RPT_ITS | CCD ---
Author Organization [facility] Care Team Providers Care Wood Heel Flap Inserter Name Role Phone ATILIO SOOD Unavailable Unavailable VENKATESH COLBERT MD Consulting Unavailab SETH Thompson Attending Unavailable SETH BASSETT Primary Care Unavailable SETH BASSETT Admitting Unavailable PROVIDER, UNKNOWN Consulting Unavailable Dr. Kade Colbert Primary Care Provider [phone] Dr. Kade Colbert Referring Provider Dr. Calixto Crump Attending Provider Dr. Calixto Crump Other Provider [phone] Iker Guzmán Attending Unavailable Ranney, Christopher Primary [...] sources) Ondansetron Drug Allergy 0 lightheaded, nausea [facility] (1 source) Ondansetron Drug Allergy 5 [facility] Repository Medications Current Medications Medication Drug Class(es) [...] 12-03-2024 Anti-TG AB < 1.0 Normal 0.0-0.9 [facility] Comment on above: Order Comment: Reaso n for Laboratory Test x Result Comment: Thyr oglobulin Antibody measured by Latoya Austin Methodology It should be noted that the presence of thyroglobulin antibodies may not be pathogenic nor diagnostic, especially at very low levels. The assay pinked edge sewing machine operator has found that four percent of individuals without evidence of thyroid disease or autoimmunity will have positive TgAb levels up to 4 IU/mL. Performed By: #### L 3300.6820, L501.9520, L506.0400 #### [facility] [address] [place], [place], [address] THYROGLOB QUANT 4.4 ng/mL Normal 1.4-29.2 [facility] Comment on above: Order Comment: Reaso n [...] by Latoya Yeison Immunometric Assay Performed at: [facility] [id number] Ribbon Lap Machine Tender: Atilio Davis PhD, Phone: [phone] Performed By: #### L 3300.6820, L501.9520, L506.0400 #### [facility] [address] [place], [place], [address] T4 Free Directon 11-29-2024 T4 FREE DIRECT 1.20 ng/dL Normal 0.76-1.46 [facility] Comment on above: Performed By: #### L 3300.6820, L501.9520, L506.0400 #### [facility] [address] [place], [place], [address] T4 freeOrdered By: Iker Guzmán on 11-29-2024 Free T4 [Mass/Vol] 1.20 ng/dL 0.76-1.46 [facility] TSH DL <= 0.005 mIU/L QnOrde red By: Iker Guzmán on 11-29-2024 Thyroid Stimulating Hormone (TSH) 1.150 uIU/mL 0.300-4.200 [facility] Thyroglobulin Ab serumOrdere d By: Iker Guzmán on 11-29-2024 Thyroglobulin Antibody < 1.0 IU/mL 0.0-0.9 [facility] Comment on above: Thyroglobulin Antibo dy measured by Latoya CoulterMethodologyIt should be noted that the presence of thyroglobulinantibodies may not be pathogenic nor diagnostic, especiallyat very low levels. The assay pinked edge sewing machine operator has found thatfour percent of individuals without evidence of thyroiddisease or autoimmunity will have positive TgAb levels upto 4 IU/mL. Thyroglobulin serOrdered By: Iker Guzmán on 11-29-2024 Thyroglobulin Level 4.4 ng/mL 1.4-29.2 [facility] Comment on above: According to the [employer] Clinical Biochemistry,the reference interval for Thyroglobulin (TG) should berelated to euthyroid patients and not for patients whounderwent thyroidectomy. TG reference intervals for thesepatients depend on the residual mass of the thyroid tissueleft after surgery. Establishing a post-operative baselineis recommended. The assay limit of quantitation is 0.1ng/mLThyroglobulin measured by Latoya [employer] ImmunometricAssayPerformed at: - [facility] [address] [place], [place] [id number] Director: Atilio Davis PhD, Phone: [phone] Thyroid Stim Hormone (TSH)on 11-29-2024 TSH 1.150 uIU/mL Normal 0.300-4.200 [facility] Comment on above: Performed By: #### L 3300.6820, L501.9520, L506.0400 #### [facility] [address] [place], [address] Surgery Visit Reporton 11-03 Surgery Visit Report [facility] [address] [place] [address] OFFICE VISIT Date of Service: 11/03/24 MR#: [id number] Acct: [id number] Name: MIRANDA VARGAS Rep #: [id number] : 1995 Provider: Dr. Calixto cui MD Age/Sex: 29/M Location: [facility] Status: Signed Intake Vital Signs 08/07/24 [...] restless l (more content not included)... Normal [facility] Thyroidon 10-27-2024 Thyroid [facility] [address] [place] [address] Thyroid MR#: [id number] Acct: [id number] Name: MIRANDA VARGAS Rep #: [id number] : 1995 M 29 From: Wero Ortez MD PCP: Dr. Venkatesh Colbert MD Status: REG CLI Study: Thyroid Date of Exam: 10/27/24 Exam# [id number] Ordering Dr: Calixto Crump MD PROCEDURE: ULTRASOUND [...] Venkatesh Colbert MD; Dr. Calixto Crump MD Asic Design Engineer: Signed Normal [facility] Endocrinology Visit Reporton 08-07-2024 Endocrinology Visit Report [facility] [address] [facility] [place] [address] OFFICE VISIT Date of Service: 08/07/24 MR#: [id number] Acct: [id number] Name: MIRANDA VARGAS Rep #: [id number] : 1995 Provider: Tunde Garnica Age/Sex: 29/M Location[place] [facility] [place] Status: Signed Intake Vital Signs 12/21/23 08:21 [...] no au (more content not included)... Normal [facility] Basic Metabolic Profile (BMP )on 05-20-2024 BUN/CRE 14.8 RATIO Normal 10-20 [facility] Comment on above: Order Comment: Order Date: 05/20/24Order Info: 666-09 - BMPOrder Info: 11225-9 - MGOrder Info: 3051-0 - W6NHegdy Info: 3016-3 - TSHOrder Info: 3024-7 - T4F Performed By: #### L 500.2500, L501.29861, L509.1000, L501.9520, L501.5200, L506.0400 ####[facility] [address] [place], [address] CA,Total 9.4 mg/dL Normal 8.5-10.1 [facility] Comment on above: Order Comment: Order Date: 05/20/24Order Info: 666-09 - BMPOrder Info: 33904-8 - MGOrder Info: 3051-0 - X7LRgxhs Info: 3016-3 - TSHOrder Info: 3024-7 - T4F Performed By: #### L 500.2500, L501.01432, L509.1000, L501.9520, L501.5200, L506.0400 ####[facility] [address] [place], [address] Chloride [Moles/Vol] 106 mmol/L Normal 98-107 [facility] Comment on above: Order Comment: Order Date: 05/20/24Order Info: 666- - BMPOrder Info: 26336-0 - MGOrder Info: 3051-0 - N5RCjyln Info: 3016-3 - TSHOrder Info: 3024-7 - T4F Performed By: #### L 500.2500, L501.24427, L509.1000, L501.9520, L501.5200, L506.0400 ####[facility] [address] [place], [address] CO2 [Moles/Vol] 30.0 mmol/L Normal 21.0-32.0 [facility] Comment on above: Order Comment: Order Date: 05/20/24Order Info: 666-09 - BMPOrder Info: 27245-0 - MGOrder Info: 3051-0 - B0YXrmvt Info: 3016-3 - TSHOrder Info: 3024-7 - T4F Performed By: #### L 500.2500, L501.28951, L509.1000, L501.9520, L501.5200, L506.0400 ####[facility] [address] [place], [address] Creatinine [Mass/Vol] 0.88 mg/dL Normal 0.70-1.30 [facility] Comment on above: Order Comment: Order Date: 05/20/24Order Info: 666-09 - BMPOrder Info: 32374-5 - MGOrder Info: 3051-0 - T4ICuool Info: 3016-3 - TSHOrder Info: 3024-7 - T4F Result Comment: The validity of the calculated GFR GFRAA in patients over 70 years has not been determined. Clinical correlation is essential. Performed By: #### L 500.2500, L501.21157, L509.1000, L501.9520, L501.5200, L506.0400 ####[facility] [address] [place], [address] EST GFR - AA 133 mL/min Normal >60 [facility] Comment on above: Order Comment: Order Date: 05/20/24Order Info: 666- - BMPOrder Info: 45059-3 - MGOrder Info: 3051-0 - Y1OQlncp Info: 3016-3 - TSHOrder Info: 3024-7 - T4F Result Comment: Afri can Venezuelan GFR Calc Performed By: #### L 500.2500, L501.17126, L509.1000, L501.9520, L501.5200, L506.0400 ####[facility] [address] [place], [place], [address] GAP 5 Normal 5-15 [facility] Comment on above: Order Comment: Order Date: 05/20/24Order Info: 666-09 - BMPOrder Info: 44200-5 - MGOrder Info: 3051-0 - M5JJdflj Info: 3016-3 - TSHOrder Info: 3024-7 - T4F Performed By: #### L 500.2500, L501.62688, L509.1000, L501.9520, L501.5200, L506.0400 ####[facility] [address] [place], [place], [address] GFR/1.73 sq M.predicted among non-blacks MDRD (S/P/Bld) [Vol rate/Area] 110 mL/min/{1.73_m2} Normal >60 [facility] Comment on above: Order Comment: Order Date: 05/20/24Order Info: 666- - BMPOrder Info: 98572-4 - MGOrder Info: 3051-0 - Y2KGtovi Info: 3016-3 - TSHOrder Info: 3024-7 - T4F Result Comment: Non- GFR Calc Performed By: #### L 500.2500, L501.56695, L509.1000, L501.9520, L501.5200, L506.0400 ####[facility] [address] [place], [address] Glucose [Mass/Vol] 93 mg/dL Normal 74-106 [facility] Comment on above: Order Comment: Order Date: 05/20/24Order Info: 666- - BMPOrder Info: 30548-3 - MGOrder Info: 3051-0 - Y5IOduuu Info: 3016-3 - TSHOrder Info: 3024-7 - T4F Performed By: #### L 500.2500, L501.38049, L509.1000, L501.9520, L501.5200, L506.0400 ####[facility] [address] [place], [address] Potassium [Moles/Vol] 3.8 mmol/L Normal 3.5-5.1 [facility] Comment on above: Order Comment: Order Date: 05/20/24Order Info: 666-09 - BMPOrder Info: 69628-1 - MGOrder Info: 3050-0 - C5TRxtkg Info: 3016-3 - TSHOrder Info: 3024-7 - T4F Performed By: #### L 500.2500, L501.40766, L509.1000, L501.9520, L501.5200, L506.0400 ####[facility] [address] [place], [address] Sodium [Moles/Vol] 141 mmol/L Normal 136-145 [facility] Comment on above: Order Comment: Order Date: 05/20/24Order Info: 666-09 - BMPOrder Info: 22054-8 - MGOrder Info: 305-0 - Y8LMyxkb Info: 3016-3 - TSHOrder Info: 3024-7 - T4F Performed By: #### L 500.2500, L501.60873, L509.1000, L501.9520, L501.5200, L506.0400 ####[facility] [address] [place], [address] Urea nitrogen [Mass/Vol] 13 mg/dL Normal 7-18 [facility] Comment on above: Order Comment: Order Date: 05/20/24Order Info: 666- - BMPOrder Info: 73458-0 - MGOrder Info: 3051-0 - G0ZHtoec Info: 3016-3 - TSHOrder Info: 302-7 - T4F Performed By: #### L 500.2500, L501.33144, L509.1000, L501.9520, L501.5200, L506.0400 ####[facility] [address] [place], [address] Free T3on 05-20-2024 Free T3 [Mass/Vol] 2.6 pg/mL Normal 2.18-3.98 [facility] Comment on above: Order Comment: Order Date: 05/20/24Order Info: 666-09 - BMPOrder Info: 03370-7 - MGOrder Info: 3051-0 - D8IIzhkq Info: 3016-3 - TSHOrder Info: 3023-7 - T4F Performed By: #### L 500.2500, L501.68820, L509.1000, L501.9520, L501.5200, L506.0400 ####[facility] [address] [place], [address] L501.2276on 05-20-2024 Ionized Calcium 5.06 mg/dL Normal 4.36-5.20 [facility] Comment on above: Performed By: #### L 501.2276 ####[facility] [address] [place], [address] Magnesiumon 05-20-2024 Magnesium [Mass/Vol] 2.5 mg/dL Normal 1.6-2.6 [facility] Comment on above: Order Comment: Order Date: 05/20/24Order Info: 666-09 - BMPOrder Info: 57595-5 - MGOrder Info: 3051-0 - E4RIhcoe Info: 3016-3 - TSHOrder Info: 3024-7 - T4F Performed By: #### L 500.2500, L501.29136, L509.1000, L501.9520, L501.5200, L506.0400 ####[facility] [address] [place], [address] PTHINon 05-20-2024 PTH 59.6 pg/mL Normal 18.4-80.1 [facility] Comment on above: Order Comment: Order Date: 05/20/24Order Info: 0565-1 - PTHIN Performed By: #### L 500.2500, L501.99710, L509.1000, L501.9520, L501.5200, L506.0400 ####[facility] [address] [place], [place], [address] T4 Free Directon 05-20-2024 T4 FREE DIRECT 0.76 ng/dL Normal 0.76-1.46 [facility] Comment on above: Order Comment: Order Date: 05/20/24Order Info: 06- - BMPOrder Info: 14187-8 - MGOrder Info: 3051-0 - W1JJjhic Info: 3016-3 - TSHOrder Info: 302- - T4F Performed By: #### L 500.2500, L501.88118, L509.1000, L501.9520, L501.5200, L506.0400 ####[facility] [address] [place], [place], [address] Thyroid Stim Hormone (TSH)on 05-20-2024 TSH 3.750 uIU/mL High 0.358-3.740 [facility] Comment on above: Order Comment: Order Date: 05/20/24Order Info: 06-1 - BMPOrder Info: 47547-4 - MGOrder Info: 3051-0 - O2OWhjrw Info: 3016-3 - TSHOrder Info: 3024-7 - T4F Performed By: #### L 500.2500, L501.89013, L509.1000, L501.9520, L501.5200, L506.0400 ####[facility] [address] [place], [address] Thyroid Peroxidase ABon 06-2 THYR PEROX AB < 9 Normal 0-34 [facility] Comment on above: Result Comment: Perf ormed at: [facility] [address] [id number] Ribbon Lap Machine Tender: Atilio Davis PhD, Phone: [phone] Performed By: #### L 506.0400, L501.9520, L3300.6900, L500.4050 #### [facility] [address] [place], [address] Comprehensive Metabolic Prof ilon 03-21-2024 Albumin [Mass/Vol] 3.9 g/dL Normal 3.2-5.0 [facility] Comment on above: Performed By: #### L 506.0400, L501.9520, L3300.6900, L500.4050 #### [facility] [address] [place], [address] Albumin/Globulin [Mass ratio] 1.0 {ratio} Normal 0.9-2.4 [facility] Comment on above: Performed By: #### L 506.0400, L501.9520, L3300.6900, L500.4050 #### [facility] [address] [place], [address] ALK P 58 U/L Normal 45-117 [facility] Comment on above: Performed By: #### L 506.0400, L501.9520, L3300.6900, L500.4050 #### [facility] [address] [place], [address] ALT [Catalytic activity/Vol] 36 U/L Normal 16-61 [facility] Comment on above: Performed By: #### L 506.0400, L501.9520, L3300.6900, L500.4050 #### [facility] [address] [place], [address] AST [Catalytic activity/Vol] 20 U/L Normal 15-37 [facility] Comment on above: Performed By: #### L 506.0400, L501.9520, L3300.6900, L500.4050 #### [facility] [address] [place], [address] Bilirubin [Mass/Vol] 0.50 mg/dL Normal 0.20-1.00 [facility] Comment on above: Result Comment: For patients on eltrombopag therapy, use of Dimension Sutton TBIL is not recommended. Performed By: #### L 506.0400, L501.9520, L3300.6900, L500.4050 #### [facility] [address] [place], [address] BUN/CRE 16.6 RATIO Normal 10-20 [facility] Comment on above: Performed By: #### L 506.0400, L501.9520, L3300.6900, L500.4050 #### [facility] [address] [place], [address] CA,Total 8.9 mg/dL Normal 8.5-10.1 [facility] Comment on above: Performed By: #### L 506.0400, L501.9520, L3300.6900, L500.4050 #### [facility] [address] [place], [address] Chloride [Moles/Vol] 106 mmol/L Normal 98-107 [facility] Comment on above: Performed By: #### L 506.0400, L501.9520, L3300.6900, L500.4050 #### [facility] [address] [place], [address] CO2 [Moles/Vol] 27.0 mmol/L Normal 21.0-32.0 [facility] Comment on above: Performed By: #### L 506.0400, L501.9520, L3300.6900, L500.4050 #### [facility] [address] [place], [address] Creatinine [Mass/Vol] 0.84 mg/dL Normal 0.70-1.30 [facility] Comment on above: Result Comment: The validity of the calculated GFR GFRAA in patients over 70 years has not been determined. Clinical correlation is essential. Performed By: #### L 506.0400, L501.9520, L3300.6900, L500.4050 #### [facility] [address] [place], [address] EST GFR - AA 139 mL/min Normal >60 [facility] Comment on above: Result Comment: Afri can Venezuelan GFR Calc Performed By: #### L 506.0400, L501.9520, L3300.6900, L500.4050 #### [facility] [address] [place], [address] GAP 7 Normal 5-15 [facility] Comment on above: Performed By: #### L 506.0400, L501.9520, L3300.6900, L500.4050 #### [facility] [address] [place], [address] GFR/1.73 sq M.predicted among non-blacks MDRD (S/P/Bld) [Vol rate/Area] 115 mL/min/{1.73_m2} Normal >60 [facility] Comment on above: Result Comment: Non- GFR Calc Performed By: #### L 506.0400, L501.9520, L3300.6900, L500.4050 #### [facility] [address] [place], [address] Globulin (S) [Mass/Vol] 3.9 g/dL Normal 2.2-4.2 [facility] Comment on above: Performed By: #### L 506.0400, L501.9520, L3300.6900, L500.4050 #### [facility] [address] [place], [address] Glucose [Mass/Vol] 85 mg/dL Normal 74-106 [facility] Comment on above: Performed By: #### L 506.0400, L501.9520, L3300.6900, L500.4050 #### [facility] [address] [place], [address] Potassium [Moles/Vol] 3.8 mmol/L Normal 3.5-5.1 [facility] Comment on above: Performed By: #### L 506.0400, L501.9520, L3300.6900, L500.4050 #### [facility] [address] [place], [address] Sodium [Moles/Vol] 140 mmol/L Normal 136-145 [facility] Comment on above: Performed By: #### L 506.0400, L501.9520, L3300.6900, L500.4050 #### [facility] [address] [place], [address] T PROT 7.8 g/dL Normal 6.4-8.2 [facility] Comment on above: Performed By: #### L 506.0400, L501.9520, L3300.6900, L500.4050 #### [facility] [address] [place], [address] Urea nitrogen [Mass/Vol] 14 mg/dL Normal 7-18 [facility] Comment on above: Performed By: #### L 506.0400, L501.9520, L3300.6900, L500.4050 #### [facility] [address] [place], [address] T4 Free Directon 06-28-2024 T4 FREE DIRECT 0.86 ng/dL Normal 0.76-1.46 [facility] Comment on above: Performed By: #### L 506.0400, L501.9520, L3300.6900, L500.4050 #### [facility] [address] [place], [place], [address] Thyroid Stim Hormone (TSH)on 03-21-2024 TSH 1.57 uIU/mL Normal 0.358-3.74 [facility] Comment on above: Performed By: #### L 506.0400, L501.9520, L3300.6900, L500.4050 #### [facility] [address] [place], [place], [address] Endocrinology Visit Reporton 12-21-2023 Endocrinology Visit Report [facility] [address] [facility] [address] [address] [place], [place] [address] OFFICE VISIT Date of Service: 12/21/23 MR#: [id number] Acct: [id number] Name: MIRANDA VARGAS Rep #: [id number] : 1995 Provider: Tunde Garnica Age/Sex: 28/M [place] [facility] [place] Status: Signed Intake Vital Signs 09/13/23 06:28 12/21/23 08:21 Height 5 ft 8 in 5 ft 8 in Weight: 166 lb BMI 25.2 BP 132/74 H Blood Pressure Location Lt brachial Position Sitting Pulse 80 Pulse Source Monitor Temp 98.6 F Temp Source Temporal Pulse Oximetry (%) 99 Oxygen Delivery Method room air Intake Visit Reasons: Thyroid Cancer Chief Complaint: Thyroid cancer Sales Forecast Analyst Required: No Accompanied by: Self Is patient [...] a 2 (more content not included)... Normal [facility] No Panel InformationOrdered By: Calixto Crump on 11-07-2023 Free Triiodothyronine (T3) pg/dL 2.8 pg/mL 2.18-3.98 [facility] No Panel InformationOrdered By: Kade Colbert on 11-07-2023 Thyroglobulin Antibody < 1.0 IU/mL 0.0-0.9 [facility] Comment on above: Thyroglobulin Antibo dy measured by Latoya CoulterMethodologyIt should be noted that the presence of thyroglobulinantibodies may not be pathogenic nor diagnostic, especiallyat very low levels. The assay pinked edge sewing machine operator has found thatfour percent of individuals without evidence of thyroiddisease or autoimmunity will have positive TgAb levels upto 4 IU/mL. Thyroglobulin Level 11.5 ng/mL 1.4-29.2 [facility] Comment on above: According to the [facility] [employer] of Clinical [employer]ochemistry,the reference interval for Thyroglobulin (TG) should berelated to euthyroid patients and not for patients whounderwent thyroidectomy. TG reference intervals for thesepatients depend on the residual mass of the thyroid tissueleft after surgery. Establishing a post-operative baselineis recommended. The assay limit of quantitation is 0.1ng/mLThyroglobulin measured by Latoya Austin ImmunometricAssayPerformed at: - [facility] [id number] Director: Atilio Davis PhD, Phone: [phone] Serum or plasma calcium kamron urement (mass/volume)Ordered By: Calixto Crump on 11-07-2023 Calcium [Mass/Vol] 9.7 mg/dL 8.5-10.1 [facility] Serum or plasma thyroid stim ulating hormone (TSH) measurement (units/volume)Ordered By: Calixto Crump on 11-07-2023 TSH Qn 3.00 uIU/mL 0.358-3.74 [facility] Thin prep Papanicolaou smear with manual screeningOrdered By: Calixto Crump on 11-07-2023 Thin prep Papanicolaou smear with manual screening 0.86 ng/dL 0.76-1.46 [facility] Absolute lymphocyte countOrd ered By: Kade Colbert on 04-25-2023 Lymphocytes Auto (Unsp spec) [#/Vol] 1.13 10*3/uL 0.83-4.51 [facility] Basophil percentageOrdered B y: Kade Colbert on 04-25-2023 Basophils/100 WBC (Bld) 0.8 % 0-1 [facility] Bilirubin [Mass/Vol] 0.70 mg/dL 0.20-1.00 [facility] Comment on above: For patients on eltr ombopag therapy, use of Dimension Sutton TBIL is not recommended. Chloride [Moles/Vol] 106 mmol/L 98-107 [facility] Eosinophils/100 WBC (Bld) 4.5 % 0-5 [facility] Glucose [Mass/Vol] 102 mg/dL 74-106 [facility] Comment on above: Fasting Glucose resu lt from 100 to 125 mg/dL suggests IMPAIRED HOMEOSTASIS per A.D.A. criteria. Neutrophils (Bld) [#/Vol] 2.0 10*3/uL 2.0-7.7 [facility] Neutrophils/100 WBC (Bld) 54.6 % 47-70 [facility] Potassium [Moles/Vol] 3.8 mmol/L 3.5-5.1 [facility] Protein [Mass/Vol] 8.3 g/dL 6.4-8.2 [facility] Sodium [Moles/Vol] 140 mmol/L 136-145 [facility] Testosterone [Mass/Vol] 268.81 ng/dL [facility] Comment on above: CENTRAL 90% REFERENC E RANGES MALE AGE <50 197.44 - 669.58 ng/dL MALE AGE > or = 50 187.72 - 684.19 ng/dL FEMALE AGE <50 8.38 - 35.01 ng/dL FEMALE AGE > or = 50 <7.00 - 35.92 ng/dL Effective as of 04/19/21 WBC (Bld) [#/Vol] 3.6 10*3/uL 4.4-11.0 [facility] Blood erythrocytes count (nu mber/volume)Ordered By: Kade Colbert on 04-25-2023 RBC (Bld) [#/Vol] 4.66 10*6/uL 4.6-6.2 [facility] Blood hemoglobin measurement (mass/volume)Ordered By: Kade Colbert on 04-25-2023 Hemoglobin (Bld) [Mass/Vol] 15.1 g/dL 13.0-16.5 [facility] Blood lymphocytes/100 leukoc ytesOrdered By: Kade Colbert on 04-25-2023 Lymphocytes/100 WBC (Bld) 31.7 % 19-41 [facility] Blood monocytes/100 leukocyt esOrdered By: Kade Colbert on 04-25-2023 Monocytes/100 WBC (Bld) 8.4 % 0-10 [facility] Blood platelet mean volumeOr dered By: Kade Colbert on 04-25-2023 Platelet mean volume (Bld) [Entitic vol] 9.8 fL 6.2-12.0 [facility] Determination of erythrocyte mean corpuscular volume (MCV)Ordered By: Kade Colbert on 04-25-2023 MCV (RBC) [Entitic vol] 92.3 fL 80-94 [facility] Erythrocyte sedimentation ra teOrdered By: Kade Colbert on 04-25-2023 ESR (Bld) [Velocity] mm/h 0-20 [facility] Hematocrit Auto (Bld) [Volum e fraction]Ordered By: Kade Colbert on 04-25-2023 Hematocrit (Bld) [Volume fraction] 43.0 % 40-54 [facility] Iron measurement (mass/mass) Ordered By: Kade Colbert on 04-25-2023 Iron (Unsp spec) [Mass/Mass] 111 ug/dL 65-175 [facility] Laboratory - Chemistry and C hemistry - challengeOrdered By: Kade Colbert on 04-25-2023 ALP [Catalytic activity/Vol] 46 U/L 45-117 [facility] ALT [Catalytic activity/Vol] 60 U/L 16-61 [facility] CO2 [Moles/Vol] 31.0 mmol/L 21.0-32.0 [facility] Cobalamin (Vitamin B12) [Mass/Vol] 478 pg/mL 211-911 [facility] Globulin (S) [Mass/Vol] 4.0 g/dL 2.2-4.2 [facility] Urea nitrogen/Creatinine [Mass ratio] 16.5 mg/mg 10-20 [facility] Laboratory - Hematology and Cell countsOrdered By: Kade Colbert on 04-25-2023 Erythrocyte distribution width (RBC) [Entitic vol] 39.1 fL 35.1-43.9 [facility] Erythrocyte distribution width (RBC) [Ratio] 11.5 % 11.6-14.6 [facility] Immature granulocytes/100 WBC (Bld) 0.000 % 0.0-0.9 [facility] Comment on above: IG% - Immature Granu locytes (promyelocytes, myelocytes and metamyelocytes) > 1% indicates that a LEFT SHIFT is Present. MCH (RBC) [Entitic mass] 32.4 pg 27.0-32.0 [facility] Nucleated RBC/100 WBC (Bld) [Ratio] 0 % 0-5 [facility] MCHC Auto (RBC) [Mass/Vol]Or dered By: Kade Colbert on 04-25-2023 MCHC (RBC) [Mass/Vol] 35.1 g/dL 32-36 [facility] No Panel InformationOrdered By: Kade Colbert on 04-25-2023 Estimated GFR (MDRD) Amer 139 mL/min >60 [facility] Comment on above: GFR Calc Estimated GFR (MDRD) Non-Af Amer 115 mL/min >60 [facility] Comment on above: Non- GFR Calc Thyroid Stimulating Hormone (TSH) 1.59 uIU/mL 0.358-3.74 [facility] Vitamin D 25-Hydroxy 30.6 ng/mL [facility] Comment on above: Vitamin D 25(OH) Sta tus Range Deficiency <20 ng/mL (50nmol/L) Insufficiency 20 - 30 ng/mL (50 - 75 nmol/L) Sufficiency 30 - 100 ng/mL (75 - 250 nmol/L) Toxicity >100 ng/mL (>250 nmol/L) Platelets bldOrdered By: Osmar Colbert on 04-25-2023 Platelets (Bld) [#/Vol] 189 10*3/uL 150-450 [facility] Serum or plasma C reactive p rotein measurement (mass/volume)Ordered By: Kade Colbert on 04-25-2023 CRP [Mass/Vol] mg/L 0.0-3.0 [facility] Comment on above: C-Reactive Protein ( CRP) provides useful information for thediagnosis, therapy and monitoring of inflammatory processesand associated diseases. For the evaluation of Relative Riskfor Cardiovascular Disease, a High Sensitivity CRP (HSCRP)should be ordered. Serum or plasma albumin kamron urement (mass/volume)Ordered By: Kade Colbert on 04-25-2023 Albumin [Mass/Vol] 4.3 g/dL 3.2-5.0 [facility] Serum or plasma albumin/glob ulin mass ratioOrdered By: Kade Colbert on 04-25-2023 Albumin/Globulin [Mass ratio] 1.1 {ratio} 0.9-2.4 [facility] Serum or plasma calcium kamron urement (mass/volume)Ordered By: Kade Colbert on 04-25-2023 Calcium [Mass/Vol] 9.5 mg/dL 8.5-10.1 [facility] Serum or plasma cortisol alexis surement (mass/volume)Ordered By: Kade Colbert on 04-25-2023 Cortisol [Mass/Vol] 13.90 ug/dL 3.44-22.45 [facility] Comment on above: Adult (AM) 5.27 - 22 .45 ug/dL Adult (PM) 3.44 - 16.76 ug/dLPlease note revised CORTISOL reference range effective 2019. Serum or plasma creatinine m easurement (mass/volume)Ordered By: Kade Colbert on 04-25-2023 Creatinine [Mass/Vol] 0.85 mg/dL 0.70-1.30 [facility] Comment on above: The validity of the calculated GFR & GFRAA in patients over 70 years has not been determined. Clinical correlation is essential. Serum or plasma urea nitroge n measurement (mass/volume)Ordered By: Kade Colbert on 04-25-2023 Urea nitrogen [Mass/Vol] 14 mg/dL 7-18 [facility] Thin prep Papanicolaou smear with manual screeningOrdered By: Kade Colbert on 04-25-2023 Thin prep Papanicolaou smear with manual screening 23 U/L 15-37 [facility] Thin prep Papanicolaou smear with manual screening 3 5-15 [facility] CORONAVIRUS PCR [CCL]on 08-24 REF LAB REPORT Positive Normal [facility] Comment on above: Performed By: #### [id number] #### [facility],[address] [place] [address] SEND TO IC? YES Normal [facility] Comment on above: Performed By: #### 2 [id number] #### [facility],[address] [place] [address] COVID 19 Result INSPECTOR BARREL Positive Abnormal [facility] Comment on above: Result Comment: Posi tive for COVID19 (SARS CoV2) by PCR.(*) This test was developed and its performance characteristics determined by [facility] [place]. This test has been authorized by FDA under an Emergency Use Authorization (EUA). This test has been validated in accordance with the FDA's Guidance Document Policy for Diagnostics Testing in Laboratories Certified to Perform High Complexity Testing under CLIA prior to Emergency use Authorization for Coronavirus Disease 2019 during the Public Health Emergency issued on November 22, 2019. [facility] [address] [place] [address] Lincoln Mckinnon III, M.D. [id number] Performed By: #### 2 [id number] #### [address] [address] COVID 19 Source INSPECTOR BARREL Nasopharyngeal Swab Normal [facility] Comment on above: Result Comment: Dick ected on 09/05 AT 0555: Previously reported as U Performed By: #### 2 [id number] #### [facility],[address] [place] [address] Coronavirus 2019on 0 COVID 19 Result INSPECTOR BARREL Abnormal Negative for COVID19 (SARS CoV2) by PCR. [facility] Comment on above: Result Comment: Posi tive for This test was developed and its performance characteristics determined by [facility]'s [facility] [place]. This test has been authorized by FDA [...] developed and its performance characteristics determined by [facility] [place]. This test has been authorized by FDA [...] developed and its performance characteristics determined by [facility] [place]. This test has been authorized by FDA [...] developed and its performance characteristics determined by [facility] [place]. This test has been authorized by FDA under an Emergency Use Authorization (EUA). This test has been validated in accordance with the FDA's Guidance Document Policy for Diagnostics Testing in Laboratories Certified to Perform High Complexity Testing under CLIA prior to Emergency use Authorization for Coronavirus Disease 2019 during the Public Health Emergency issued on November 22, 2019. COVID 19 Source INSPECTOR BARREL Normal [facility] Comment on above: Result Comment: Naso pharyngeal Corrected on 09/05 AT 0555: Previously reported as U Swab Corrected on 09/05 AT 0555: Previously reported as U Final Surgical Pathology Rep [facility] 02-12-2018 Final Surgical Pathology Report . Pathology ReportsAccession: Collected Date/Time: Received Date/Time: Pathologist:[id number] 02/08/2018 14:14 EDT 02/11/2018 14:14 EDT MD VINNY CARY Final Surgical Pathology ReportDIAGNOSIS:TERMINAL ILEUM, BIOPSY: - SMALL REACTIVE SUBMUCOSAL LYMPHOID AGGREGATE AND NO HISTOPATHOLOGIC CHANGES. - NO EVIDENCE OF CROHN'S DISEASE.CLINICAL INFORMATION:CROHN'SSPECIMEN: A COLON, BX - TERMINAL ILEUM - R/O CROHN'SGROSS DESCRIPTION:Received in formalin labeled terminal ileum are 2 zamora glistening soft tissues averaging 0.3 cm. TS -1Dictated by CHIQUITA AGUSTIN ([facility])MICROSCOPIC DESCRIPTION:Slides reviewed.Electronically Signed byPathology Report verified by [facility]ron[facility] signed by VINNY CARY MDSign out Date: 02/12/2018 14:02Performing Lab: [facility], [address] [place] [address] ([place]) Comment on above: Performed By: #### S PFR ####[place] [address] Vital Signs Date Time Vital Sign Value Performing Clinician Faci lity 11-03-2024 09:54-0500 Body temperature 96.8 [degF] Dr. Venkatesh Colbert MD Work Phone: [facility] 11-03-2024 09:54-0500 Diastolic blood pressure 73 mm[Hg] Dr. Venkatesh Colbert MD Work Phone: [facility] 11-03-2024 09:54-0500 Heart rate 104 /min Dr. Venkatesh Colbert MD Work Phone: [facility] 11-03-2024 09:54-0500 Respiratory rate 17 /min Dr. Venkatesh Colbert MD Work Phone: [facility] 11-03-2024 09:54-0500 SaO2% (BldA) [Mass fraction] 98 % Dr. Venkatesh Colbert MD Work Phone: [facility] 11-03-2024 09:54-0500 Systolic blood pressure 124 mm[Hg] Dr. Venkatesh Colbert MD Work Phone: [phone] [place] [address] 09-13-2023 15:39-0500 Body temperature 98.4 [degF] Dr. Kade Colbert Work Phone: [facility] 09-13-2023 15:39-0500 Diastolic blood pressure 69 mm[Hg] Dr. Kade Colbert Work Phone: [facility] 09-13-2023 15:39-0500 Heart rate 100 /min Dr. Kade Colbert Work Phone: [facility] 09-13-2023 15:39-0500 Respiratory rate 16 /min Dr. Kade Colbert Work Phone: [facility] 09-13-2023 15:39-0500 SaO2% (BldA) [Mass fraction] 95 % Dr. Kade Colbert Work Phone: [facility] 09-13-2023 15:39-0500 Systolic blood pressure 112 mm[Hg] Dr. Kade Colbert Work Phone: [facility] 09-13-2023 14:15-0500 Inhaled oxygen flow rate 2 L/min Dr. Kade Colbert Work Phone: [facility] 09-13-2023 06:28-0500 Body height 172.[address] Kade Colbert Work Phone: [facility] 09-13-2023 06:28-0500 Body mass index (BMI) [Ratio] 25.5 kg/m2 Dr. Kade Colbert Work Phone: [facility] 09-13-2023 06:28-0500 Body weight 76.[address] Kade Colbert Work Phone: [facility] 09-04-2023 07:54-0500 Body temperature 97 [degF] Dr. Kade Colbert Work Phone: [facility] 09-04-2023 07:54-0500 Diastolic blood pressure 70 mm[Hg] Dr. Kade Colbert Work Phone: [facility] 09-04-2023 07:54-0500 Heart rate 85 /min Dr. Kade Colbert Work Phone: [facility] 09-04-2023 07:54-0500 Respiratory rate 17 /min Dr. Kade Colbert Work Phone: [facility] 09-04-2023 07:54-0500 SaO2% (BldA) [Mass fraction] 99 % Dr. Kade Colbert Work Phone: [facility] 09-04-2023 07:54-0500 Systolic blood pressure 117 mm[Hg] Dr. Kade Colbert Work Phone: [facility] 08-09-2023 14:40-0500 Body temperature 97.7 [degF] Dr. Kade Colbert Work Phone: [facility] 08-09-2023 14:40-0500 Diastolic blood pressure 76 mm[Hg] Dr. Kade Colbert Work Phone: [facility] 08-09-2023 14:40-0500 Heart rate 87 /min Dr. Kade Colbert Work Phone: [facility] 08-09-2023 14:40-0500 Respiratory rate 17 /min Dr. Kade Colbert Work Phone: [facility] 08-09-2023 14:40-0500 SaO2% (BldA) [Mass fraction] 100 % Dr. Kade Colbert Work Phone: [facility] 08-09-2023 14:40-0500 Systolic blood pressure 120 mm[Hg] Dr. Kade Colbert Work Phone: [facility] Encounters Encounter Date Encounter Type Care Provider Facility Start: 11-29-2024 End: 11-29-[address] Venkatesh Colbert MD Work Phone: [facility] Work Phone: Start: 11-29-2024 End: 11-29-[address] Iker Guzmán MD -Laboratory Work Phone: Start: 11-29-2024 End: 11-29-2024 ambulatory [facility] Facility:[facility] Start: 11-03-2024 End: 11-03-[address] Calixto Crump MD -[facility] Work Phone: Start: 11-03-2024 End: 11-03-2024 ambulatory Calixto Crump Facility:[facility] Start: 10-27-2024 End: 10-27-[address] Calixto Crump MD -[facility] Work Phone: Start: 10-27-2024 End: 10-27-2024 ambulatory Calixto Crump Facility:[facility] Start: 08-07-2024 End: 08-07-2024 ambulatory [facility] Facility:[facility] Start: 05-20-2024 End: 05-20-2024 ambulatory Venkatesh Colbert Facility:[facility] Start: 03-21-2024 End: 03-21-2024 ambulatory [facility] Facility:[facility] Start: 12-21-2023 End: 12-21-2023 ambulatory [facility] Facility:[facility] Start: 11-07-2023 End: 11-07-[address] Kade Colbert Work Phone: [facility] Work Phone: Start: 11-07-2023 End: 11-07-[address] Kade Colbert Work Phone: [facility] Work Phone: Start: 10-03-2023 End: 10-03-[address] Kade Colbert Work Phone: [facility] Work Phone: Start: 09-13-2023 Non-patient / Non-visit Dr. Kade Colbert Work Phone: [facility] Start: 09-13-2023 End: 09-13-2023 Admission to same day surgery center Dr. Kade Colbert Work Phone: [facility] Start: 09-13-2023 End: 09-13-[address] Kade Colbert Work Phone: [facility] Work Phone: Start: 09-04-2023 End: 09-04-[address] Kade Colbert Work Phone: [facility] Work Phone: Start: 08-14-2023 End: 08-14-[address] Kade Colbert Work Phone: [facility] Work Phone: Start: 08-14-2023 End: 08-14-[address] Kade Colbert Work Phone: [facility] Work Phone: Start: 08-09-2023 End: 08-09-[address] Kade Colbert Work Phone: [facility]-Laboratory, Specimen Work Phone: Start: 08-09-2023 End: 08-09-[address] Kade Colbert Work Phone: [facility] Work Phone: Start: 07-18-2023 End: 07-18-2023 ambulatory [facility] Work Phone: Start: 07-18-2023 End: 07-18-2023 Patient encounter procedure [facility]-Ultrasound, [facility] Work Phone: Start: 04-25-2023 End: 04-25-2023 ambulatory [facility] Work Phone: Start: 04-25-2023 End: 04-25-2023 Patient encounter procedure [facility]-Laboratory, [place] Work Phone: Start: 09-20-2022 End: 09-20-2022 ambulatory [facility] Work Phone: Start: 09-20-2022 End: 09-20-2022 Patient encounter procedure [facility]-Radiology, [place] Start: 09-03-2020 End: 09-03-2020 Patient encounter procedure VENKATESH COLBERT [facility] Start: 02-08-2018 End: 02-13-2018 [facility] Facility:[facility] Procedures Date Procedure Procedure Detail [...] Activity Detail Author Start: 10-03-2023 Patient referral [facility] Work Phone: Start: 09-13-2023 Patient discharge [facility] Start: 09-13-2023 Anes esoph thyrd lar ynx trach & lymph neck 1yr ANESTH NECK ORGAN 1YR/> [facility] Start: 09-13-2023 Prtl thyroid lobecto my uni w/wo isthmusectomy PARTIAL THYROID EXCISION [facility] Start: 08-13-2023 Patient referral [facility] Work Phone: Patient referral [facility] Work Phone: Thyroid gland [facility] Payers Date Payer Category Payer Self-pay [id number] 2023 Unknown [id number] 2017 Unknown [id number] 1995 Unknown [id number] [id number] Unknown Unknown [facility] [id number] Unknown BHAVNA [id number] Unknown [id number] 2.16.8 [id number] Unknown [id number] 2.16.8 [id number] Unknown [id number] 2.16.8 [id number] Unknown [id number] 2.16.8 [id number] Unknown [id number] 2.16.8 [id number] Unknown [id number] 2.16.8 [id number] Unknown [id number] 2.16.8 [id number] Social History Date Type Detail Facility Start: 04-14-2020 End: 09-07-2023 Tobacco smoking status NHIS Unknown if ever smoked [facility] Start: 04-14-2020 Non-smoker [facility] Start: 1995 Sex Assigned At Male [facility] Start: 12-21-2023 [facility] Start: 12-09-2024 Sex Male (finding) [facility] Medical Equipment Procedure Code Equipment Code Equipment Original Text Equipment Identifier Dates Thyroidectomy Plant polysaccha ride haemostatic agent, bioabsorbable ()[id number] FDA Start: 09-13-2023 Thyroidectomy Ligation clip, metallic ( )[id number] FDA Start: 09-13-2023 Goals Date Patient Goal Desired Activity /State Mental Status Date Assessment Result Facility 09-13-2023 Cognitive function Voice/Name [facility] Work Phone: Evaluation note 11-03-2024 Note Date & Type Note Facility 11-03-2024 Evaluation note Diagnosis Onset Date Resolution Papillary thyroid carcinoma chronic November 03, 2 025 9:44am [facility] Work Phone: History and physical note 09-13-2023 Note Date & Type Note Facility 09-13-2023 History and physi yancy note Note Date/Time September 13, 2023 7:35am [facility] Medical Records Department [address] [place] [address] History & Physical Exam 09/13/23 0733 MR#: [id number] Acct: [id number] Name: MIRANDA VARGAS Rep #:[id number] : 1995 28 From: Calixto [place] PCP: Dr. Kade Colbert MD Status: [facility] Location: [place] [address] History and Physical Date of Admission: 09/13/23 OFFICE VISIT Date of Service: 08/09/23 MR#: [id number] Acct: [id number] Name: MIRANDA VARGAS Rep #: [id number] : 1995 Provider: Dr. Calixto Crump MD Age/Sex: 28/M Location: [facility] Status: Signed Intake Vital Signs 08/09/2314:40 [...] mcg PO DAILY 08/09/23 [History Confirmed 08/09/23] [facility] Medical History (Updated 08/09/23 @ 16:31 by [...] None Estimated blood loss: 1 ml Alert Histotechnician Alert Billing: Yes [id number] [id number] Thyroid Procedure Time Out Time Out Informed [...] Colbert MD; Dr. Calixto Crump MD~ Signed [facility] Work Phone: Evaluation note Note Date & Type Note Facility Evaluation note No assessment information availa ble [facility] Work Phone: Evaluation note Note Date & Type Note Facility Evaluation note Diagnosis Onset Date Thyroid nodule acute [facility] Work Phone: Evaluation note Note Date & Type Note Facility Evaluation note Diagnosis Onset Date Thyroid nodule acute Papillary thyroid carcinoma acute Thyroid nodule acute [facility] Work Phone: Evaluation note Note Date & Type Note Facility Evaluation note Diagnosis Onset Date Thyroid nodule resolved Papillary thyroid carcinoma acute Thyroid nodule resolved Papillary thyroid carcinoma acute S/P thyroidectomy acute Papillary thyroid carcinoma acute S/P thyroidectomy acute [facility] Work Phone: Reason for referral (narrative) Note Date & Type Note Facility Reason for referral (narrative) No reason for referral information available [facility] Work Phone: Summary Purpose Family History Relationship Condition Age at Onset Recorded Date/T adam mother Hypertension Unknown grandfather Cardiac disease Unknown Hypertension Unknown Malignant melanoma Unknown Advance Directives Advance Directive Response Recorded Date/ Time Living Will No April 14, 2020 9:10am Power of Print Line Feeder No April 14 0 9:10am Advance Directive Response Recorded Date/ Time Living Will No April 14, 2020 10:10am Power of Print Line Feeder No April 14 0 10:10am Advance Directive Response Recorded Date/ Time Living Will No September 07 023 8:12am Power of Print Line Feeder No September 07, 2023 8:12am Advance Directive Response Recorded Date/ Time Living Will No September 07 023 9:12am Power of Print Line Feeder No September 07, 2023 9:12am Chief Complaint [...] section and content) DATE CREATED AUTHOR 03/13/2018 [facility] ([place]) DATE CREATED AUTHOR AUTHOR'S ORGANIZ ATION 09/06/2020 [facility] DATE CREATED AUTHOR AUTHOR'S ORGANIZ ATION 09/11/2020 [facility] DATE CREATED AUTHOR AUTHOR'S ORGANIZ ATION 12/12/2024 [facility] Goals (unrecognized section and content) Goals [...] Status: Inactive Member Role Status Dates Dr. Kdae Colbert MD Primary Care Provider Activ e Dr. Calixto Crump MD Attending Provider Active Team Status: Inactive Member Role Status Dates Dr. Kade Colbert MD Primary Care Provider Activ e Dr. Calixto Crump MD Attending Provider, [facility] Active Team Status: Active Member Role Status [...] BE BASED ON THE PRIMARY CLINICAL RECORDS. [employer] provides no warranty or guarantee of the accuracy or completeness of information in this document.
[2025-07-13 09:26] LABS: AST(SGOT) 23 U/L (<=37); Alanine Aminotransfer ALT/SGPT 44 U/L (<=46); Albumin, Serum 4.5 g/dL (3.5-5.0); Alkaline Phosphatase 39 U/L (40-129); Anion Gap 8 (5-15); BUN 14 mg/dL (4-19); BUN/Creat Ratio 15.9 RATIO (10-20); Calcium,Total 9.3 mg/dL (7.6-11.0); Carbon Dioxide 27.3 mmol/L (21.0-32.0); Chloride 105 mmol/L (98-108); Cholesterol 222 mg/dL (<=200); Globulin 2.8 g/dL (2.2-4.2); Glucose 90 mg/dL (70-99); Low Density Lipoprotein Calc. 161 mg/dL; Potassium 4.2 mmol/L (3.3-5.1); Triglycerides 61 mg/dL; Very Low Density Lipoprotein 12 mg/dL (5-40); Vitamin D,25 Hydroxy 21.0 ng/mL (30-100); cholesterol:hdl ratio screen 4.38
== END | disposition home or self-care (01) ==
LOC: LAB 07:21
PROVIDERS: PCP Family Medicine; Referring Provider Nurse Practitioner Family; Visit Provider Nurse Practitioner Family
DX: E89.0 Postprocedural hypothyroidism (principal)
CPT/HCPCS: 36415; 80053; 80061; 82306; 84439; 84443